=== PATIENT | male | born 2000 | race Two or more races ===

== ENCOUNTER 2024-03-17 05:39 | Emergency (ER) | payer MEDICAID, SELFPAY ==
[2024-03-17 05:41] VITALS: BP 129/76; PULSE 100; PULSE 89; RESP 13; RESP 18; TEMP 36.5; O2SAT 100; O2SAT 98; BMI 20.3
--- NOTE | 2024-03-17 05:47 | PD.EDRME ---
Rapid Medical Screening Exam RME Arrival date/time: 03/17/24 05:39 Chief Complaint: Seizure Time Seen by Provider: 03/17/24 05:47 RME Narrative: 23-year-old male with a history of seizures on Keppra who reports of breakthrough seizures. No other complaints. A problem focused workup was initiated and patient will be seen by the additional provider.
[2024-03-17] MEDS: ONDANSETRON INJ 2 MG/ML INJ 2 ML 4 MG IV (06:03)
[2024-03-17 06:31] LABS: Basophils % (Auto) 0 % (0-2.5); Eosinophils # (Auto) 0.1 Thou/mm3 (0.0-0.5); Eosinophils % (Auto) 2 % (0-10); Hematocrit 39.9 % (41.0-53.0); Hemoglobin 13.9 g/dL (13.5-16.0); Immature Granulocytes % (Auto) 0 % (0-0); Immature Granulocytes Auto 0.02 Thou/mm3 (0.00-0.00); Lymphocytes # (Auto) 1.4 Thou/mm3 (1.0-4.8); Lymphocytes % (Auto) 20 % (10-50); Mean Corpuscular HGB Conc 34.8 g/dl (31.0-37.0); Mean Corpuscular Hemoglobin 30.8 pg (25.0-35.0); Mean Corpuscular Volume 88 fL (80-100); Monocytes # (Auto) 0.8 Thou/mm3 (0.0-0.8); Monocytes % (Auto) 12 % (0-12); Neutrophils # (Auto) 4.5 Thou/mm3 (1.8-7.7); Neutrophils % (Auto) 66 % (37-80); Nucleated Red Blood Cell % 0 /100 WBC (0); Platelet Count 191 Thou/mm3 (140-440); RDW Standard Deviation 42.5 fL (35.1-43.9); Red Blood Count 4.52 Miln/mm3 (4.50-5.90); White Blood Count 6.8 Thou/mm3 (3.8-10.6)
[2024-03-17 06:40] LABS: Alanine Aminotransferase 11 U/L (10-49); Albumin, Serum 4.7 gm/dL (3.5-5.0); Albumin/Globulin Ratio 2.1 (1.2-2.2); Alkaline Phosphatase 79 U/L (46-116); Anion Gap 9 (7-16); Aspartate Amino Transferase 19 U/L (0-34); BUN/Creatinine Ratio 11 Ratio (12-20); Bilirubin,Total 0.3 mg/dL (0.3-1.2); Blood Urea Nitrogen 11 mg/dL (9-23); Calcium 9.7 mg/dL (8.3-10.6); Calcium (Corrected) 9.7 mg/dL (8.5-10.1); Carbon Dioxide 24.8 mMol/L (20.0-31.0); Chloride 106 mMol/L (98-107); Estimated Creatinine Clearance 95.8 mL/min (>60); Globulin 2.2 gm/dL (2.3-3.5); Glucose 70 mg/dL (74-106); Osmolality,Calculated 276 (275-295); Potassium 3.9 mMol/L (3.4-5.1); Sodium 140 mMol/L (136-145); Total Protein 6.9 gm/dL (5.7-8.2); eGFR > 60 See Note
--- NOTE | 2024-03-17 06:51 | XR_ITS ---
Examination: CT brain head without contrast. 2-D sagittal coronal reconstructions Date and time of exam:March 17, 2024 at 0711 hrs. Comparison December 11, 2023 Indications: Onset seizure one hour ago with loss of consciousness CTDI: vol (mGy):50.9 DLP: (mGycm):984 Technique: Multiple CT axial sections of the brain have been obtained, 5 mm slice thickness. Contrast has not been administered. 2-D sagittal, coronal reconstructions have been obtained Low dose protocols were performed. One or more of the following dose reduction techniques were used; automated exposure control, adjustment of the mA and/or KV according to patient size, use of iterative reconstruction technique. Findings: Right craniotomy defect with shunt tube tip within the right temporal horn There remains dilatation of the right lateral ventricle especially posteriorly with stable shift of the frontal horns to the left approximately 7 mm Stable encephalomalacia posterior right parietal lobe No interval hemorrhage either intra or extra-axial Fourth ventricle midline Cerebellar tonsils normal in position No cranial vault fracture Impression: No interval hemorrhage Consider elective brain MRI follow-up, seizure protocol
--- NOTE | 2024-03-17 07:00 | PC.NURSE ---
REPORT RECEIVED AT THIS TIME; PER REPORT, PT COMING IN FOR SEIZURE EPISODE TONIC-CLONIC LASTING 2 MINUTES AT HOME. PT WAS RESTING WITH WHEN HE HAD A SEIZURE EPISODE. PT DID ADMINISTER A DIAZEPAM NASAL SPRAY TO SELF BEFORE COMING TO THE ED. PT HAS HX OF SEIZURE, CYSTS ON HIS BRAIN, AND BRAIN SHUNT. PT CONNECTED TO MONITORS AT THIS TIME; PT SLEEPING AND RESTING COMFORTABLY. NO ACUTE DISTRESS NOTED. SEIZURE PRECAUTIONS IN PLACE.
[2024-03-17 07:01] VITALS: BP 110/59; PULSE 78; RESP 15; TEMP 36.4; O2SAT 99
[2024-03-17] MEDS: ACETAMINOPHEN 325 MG TABLET 650 MG PO (07:24)
[2024-03-17] MEDS: LORazepam 0.5 MG TABLET 1 MG PO (07:45)
--- NOTE | 2024-03-17 07:47 | PC.NURSE ---
Pt drank an orange juice while taking ativan, currently denies nausea. No complaints.
--- NOTE | 2024-03-17 09:13 | EDNOTE_ITS ---
ED Seizures RME/HPI General Chief Complaint: Seizure Stated Complaint: SEIZURE Time Seen by Provider: 03/17/24 05:47 Arrival date/time: 03/17/24 05:39 RME / HPI RME / HPI Narrative: 23-year-old male with a history of seizures on Keppra who reports of breakthrough seizures. No other complaints. A problem focused workup was initiated and patient will be seen by the additional provider. DR. REED MAIN ED EVALUATION: 23 year old male with past medical history significant for brain cyst operated at 10 years old and seizures that occur about once a month, marijuana use presents to the Emergency Department BIBA accompanied by mother with complaint of seizures, last one lasted about 2 minutes. Symptoms are moderate. No trauma/ fall/ injuries or other symptoms at this time. Related Data Home Medications ?Medication ?Instructions ?Recorded ?Confirmed buspirone 7.5 mg tablet 10 mg PO BID 03/17/24 03/17/24 clobazam 10 mg tablet 10 mg PO BID 03/17/24 03/17/24 diazepam 20 mg/2 spray (10 mg/0.1 20 mg intranasal PRN PRN Seizure 03/17/24 03/17/24 mL x 2) nasal spray (Valtoco) Activity eslicarbazepine 800 mg tablet 800 mg PO 1XD 03/17/24 03/17/24 (Aptiom) Allergies Allergy/AdvReac Type Severity Reaction Status Date / Time No Known Allergies Allergy Verified 12/11/23 06:25 Review of Systems Review of Systems Systems Reviewed: All systems reviewed, normal except as documented Narrative Review of Systems: GEN: No fever, no chills, no weight loss EYES: No discharge, no visual changes, no pain HEENT: No ear pain, no congestion, no sore throat PULM: No shortness of breath, no cough, no congestion CV: No chest pain, no dyspnea on exertion, no palpitations GI: No nausea, no vomiting, no diarrhea, no pain, no constipation : No frequency, no urgency and no dysuria MUSC/SKEL: No joint pain, no back pain SKIN: No rash PSYCH: No hallucinations, no depression HEME/LYMPH: No easy bleeding or bruising tendencies NEURO: No weakness, no headache, + seizures Past Medical History Past Medical History NEUROLOGIC: Positive Neurological Disorders (brain cysts) and Seizures CARDIAC: Negative Congestive Heart Failure RESPIRATORY: Negative Chronic Obstructive Pulmonary Disease (COPD) GENITOURINARY: Negative Renal Disease ENDOCRINE: Negative Diabetes Mellitus Type 1 or Diabetes Mellitus Type 2 OTHER HISTORY: Negative Anesthesia Reactions Surgical History SURGICAL: Positive Neurologic Surgery and Brain Shunt Social History SMOKING STATUS: Unknown if ever smoked ED Exam Narrative Physical exam: GENERAL APPEARANCE: Well hydrated, well nourished, in no acute distress. VITALS: All vitals were reviewed and the pulse ox is 99% on room air which is normal according to my interpretation. HEENT: Normocephalic, atramatic, EOMI, EACs are patent. There is no bulge or retraction. Throat without erythema or exudate. Moist oromucosa. No jaundice NECK: Supple, no JVD or bruits. CARDIOVASCULAR: Heart regular without S3-S4 or murmur. No rubs or gallops. LUNGS/CHEST: Clear to auscultation bilaterally. No rales, rhonchi, or wheezing. Normal inspection. ABDOMEN: Soft, nontender, with normal bowel sounds. No pulsatile masses. No rebound, rigidity, or guarding. No incarcerated hernia. Normal inspection and palpation. EXTREMITIES: No edema, clubbing, or cyanosis. Intact CSM. Normal inspection and palpation. SKIN: Warm and dry without rashes. Normal inspection. MUSCULOSKELETAL: No gross deformity, full ROM all extremities. Normal inspection. NEURO: Alert and oriented x3. Cranial nerves II through XII grossly intact. There are no other motor or sensory deficits noted. PSYCHIATRIC: Normal mood and affect. No psychosis. Course Quality Measures none Orders Category Date Time Status Saline [Insert IV] NOW Care 03/17/24 06:[address] head/brain wo con Stat Exams 03/17/24 06:51 Completed CBC Stat Lab 03/17/24 06:04 Completed CMP [Comprehensive Metabolic Panel] Stat Lab 03/17/24 06:04 Completed Acetaminophen Tab [Tylenol Tab] Med 03/17/24 07:22 Discontinued 650 mg PO X1 ONE LORazepam [Ativan] Med 03/17/24 07:31 Discontinued 1 mg PO X1 ONE Ondansetron Inj [Zofran Inj] Med 03/17/24 05:57 Discontinued 4 mg .ROUTE .STK-MED ONE Ondansetron Inj [Zofran Inj] Med 03/17/24 06:00 Discontinued 4 mg IV X1 ONE levETIRAcetam INJ [Keppra Inj] Med 03/17/24 06:30 Discontinued 1,000 mg IVP X1 ONE Vital Signs Vital signs: Vital Signs Temperature 97.7 F 03/17/24 05:41 Pulse Rate 89 03/17/24 05:41 Respiratory Rate 13 03/17/24 05:41 Blood Pressure 129/76 03/17/24 05:41 Pulse Oximetry (%) 100 03/17/24 05:41 Seizure MDM Narrative MDM Narrative:: I, Christel Fernández, am scribing for and in the presence of Dr. Reed. CBC is negative. CMP remarkable for sugar of 70. At that time the fingerstick was 96. And the patient tolerated p.o. fluid well. Therefore giving him some orange juice. The patient also received a Ativan [address] brain was done and reviewed by me and interpreted by me as follow: No bleed. No mass. No shifting. No swelling. There is a cyst right next to the posterior horn of the right lateral ventricle. There is a [employer] shunt inside it. In comparison to the old CT brain it is identical. No change at all. No bleed. No mass. And normal bones except for the craniotomy in the right parietal skull. In the emergency department, I spoke to and discussed with Dr. Sosa, neurologist on-call as well as his own neurologist. She recommend to increase the Onfi from 10 mg p.o. twice daily to 15 mg p.o. twice daily. She said that she will write prescription for that. Patient and mom were informed of that. He continued to do well here in the emergency department. No further seizure activity noted. He is alert awake oriented x 4 GCS of 15 GCS of 15 and no neurological deficit. And I was told that the seizure at home was happening in bed. So there was no trauma or injury. Patient data External records reviewed:: [facility] previous records (Reviewed last ED visit dated 12/11/23, discharged with the following: Nausea & vomiting) Clinical information provided by:: patient and parent (mother) Social determinants that could affect healthcare access:: substance use (marijuana use) Patient has the following chronic illnesses:: Brain cyst operated at 10 years old and seizures that occur about once a month. How is presenting disease/condition affected by chronic disease/condition?: caused by Evaluation data The following diagnostics were reviewed and interpreted by me:: lab results and radiology exam(s) Lab and/or radiology exams considered but not ordered:: none Interpretation Summary: Procedure(s): CT head/brain wo con Accession Number(s): [id number] cc: Jason Johnson MD; Gregor Orantes MD; Cruzito Reed MD~ Examination: CT brain head without contrast. 2-D sagittal coronal reconstructions Date and time of exam:March 17, 2024 at 0711 hrs. Comparison December 11, 2023 Indications: Onset seizure one hour ago with loss of consciousness CTDI: vol (mGy):50.9 DLP: (mGycm):984 Technique: Multiple CT axial sections of the brain have been obtained, 5 mm slice thickness. Contrast has not been administered. 2-D sagittal, coronal reconstructions have been obtained Low dose protocols were performed. One or more of the following dose reduction techniques were used; automated exposure control, adjustment of the mA and/or KV according to patient size, use of iterative reconstruction technique. Findings: Right craniotomy defect with shunt tube tip within the right temporal horn There remains dilatation of the right lateral ventricle especially posteriorly with stable shift of the frontal horns to the left approximately 7 mm Stable encephalomalacia posterior right parietal lobe No interval hemorrhage either intra or extra-axial Fourth ventricle midline Cerebellar tonsils normal in position No cranial vault fracture Impression: No interval hemorrhage Consider elective brain MRI follow-up, seizure protocol Dictated By: Gregor Orantes MD Medications / Prescriptions Medications or Prescriptions considered but not ordered:: none Medication administrations:: Medication Administration History Discontinued Medications Acetaminophen (Acetaminophen 325 Mg Tablet) 650 mg PO X1 ONE Stop: 03/17/24 07:23 Last Admin: 03/17/24 07:24 Dose: 650 mg Documented By: GM Levetiracetam (Levetiracetam Inj 100 Mg/Ml Vial 5ml) 1,000 mg IVP X1 ONE Stop: 03/17/24 06:31 Last Admin: 03/17/24 07:25 Dose: Not Given Documented By: GM Non-Admin Reason: Discontinued Lorazepam (Lorazepam 0.5 Mg Tablet) 1 mg PO X1 ONE Stop: 03/17/24 07:32 Last Admin: 03/17/24 07:45 Dose: 1 mg Documented By: AM Ondansetron HCl (Ondansetron Inj 2 Mg/Ml Inj 2 Ml) 4 mg IV X1 ONE; Protocol Stop: 03/17/24 06:01 Last Admin: 03/17/24 06:03 Dose: 4 mg Documented By: NICHOLAS Ondansetron HCl (Ondansetron Inj 2 Mg/Ml Inj 2 Ml) Confirm Administered Dose 4 mg .ROUTE .STK-MED ONE Stop: 03/17/24 05:58 Last Admin: 03/17/24 06:05 Dose: Not Given Documented By: NICHOLAS Non-Admin Reason: Duplicate Medication on eMAR see above Consultations Consultation(s) initiated? (list below): Yes Diagnosis Seizure Differential Diagnosis: intractable seizure disorder, generalized seizure and epileptic seizure Most likely diagnosis given after review of the tests above:: Recurrent epileptic seizure Admission Indicated Admission indicated?: not indicated Admission Request Was there a request for admission?: No Disposition Plan Disposition Plan: Discharge Discharge Attestation Discharge Attestation: The patient and all family members were given an opportunity to ask questions and understood the discharge instructions. Discharge instructions specifically effects, indications for sooner follow up or return to the emergency department, and the expected course of current diagnosis. Patient condition: Stable Discharge Plan Plan Patient Disposition: HOME (Self Care) Disposition Comment: Stable for [place] home Prescriptions/Referrals Prescriptions/Med Rec: No Action buspirone 7.5 mg tablet 10 mg PO BID Aptiom 800 mg tablet 800 mg PO 1XD Patient Comments: TAKE 1 TABLET BY MOUTH EVERY DAY Valtoco 20 mg/2 spray (10mg/0.1mL x2) spray,non-aerosol 20 mg INTRANASAL PRN PRN (Reason: Seizure Activity) clobazam 10 mg tablet 10 mg PO BID Patient Comments: TAKE 1 TABLET BY MOUTH TWICE A DAY Referrals: Jason Johnson MD [Primary Care Provider] - In 1 week Problem List Clinical Impression: Recurrent seizures Patient/Caregiver Discharge Instructions Education Materials: ED Seizure, Recurrent (Adult) Additional Instructions: I spoke to your neurologist. She recommend that you increase the clobazam Onfi from 10 mg to 15 mg by mouth twice a day. She will write prescription for that. Please follow-up with her. Return to nearest ER for any problem. Warning no driving, no heavy equipments, no beba Print Language: Korean Stand Alone Forms: Rosa Award Info., Patient Portal Info Letter
[2024-03-17 09:30] VITALS: BP 112/56; PULSE 78; RESP 19; O2SAT 96
[2024-03-17 10:23] VITALS: BP 119/69; PULSE 99; RESP 18; TEMP 36.9; O2SAT 96
== END 2024-03-17 10:32 | disposition home or self-care (01) ==
PROVIDERS: Emergency Medicine; Emergency Provider Emergency Medicine; PCP Family Medicine
DX: R56.9 Unspecified convulsions (principal)
CPT/HCPCS: 36415; 70450; 80053; 85025; 96374; 99284; J2405; A9270

== ENCOUNTER 2024-06-29 19:04 | Emergency (ER) | payer MEDICAID, SELFPAY ==
[2024-06-29 19:06] VITALS: BMI 20.3
[2024-06-29 19:29] VITALS: BP 132/76; PULSE 71; RESP 18; TEMP 37.2; O2SAT 99; BMI 18.1
--- NOTE | 2024-06-29 19:47 | EDNOTE_ITS ---
<Statement entered by Kaycee Rosales MD - 06/30/24 04:25> As co-signing physician, I was present and available for consult prn. I concur with the plan and care as documented by the midlevel provider. ED Dizzyness RME/HPI General Chief Complaint: Dizziness Stated Complaint: DIZZINESS, SHAKY, NUMBNESS TO EXTREMITIES FOR DAYS Time Seen by Provider: 06/29/24 19:37 Arrival date/time: 06/29/24 19:04 RME / HPI RME / HPI Narrative: 23-year-old male patient with significant history of complex seizure, currently managed by [facility] neurologist, within further evaluation and possible surgery according to the patient, came in for evaluation regarding on and off dizziness shakiness and numbness to both lower extremities for days. Usually worst when the patient get up from bed to ambulation in the morning. Patient told me that her Leonid MD just increase his Aptiom to 1 g every day. Patient is denying any headache denies any slurring speech denies any other complaints. Family is concerned that his sodium is low. Related Data Home Medications ?Medication ?Instructions ?Recorded ?Confirmed buspirone 7.5 mg tablet 10 mg PO BID 03/17/24 clobazam 10 mg tablet 10 mg PO BID 03/17/24 diazepam 20 mg/2 spray (10 mg/0.1 20 mg intranasal PRN PRN Seizure 03/17/24 03/17/24 mL x 2) nasal spray (Valtoco) Activity eslicarbazepine 800 mg tablet 800 mg PO 1XD 03/17/24 0 03/17/24 (Aptiom) Previous Rx's ?Medication ?Instructions ?Recorded meclizine 25 mg tablet 25 mg PO BID PRN dizziness # 20 tabs 06/29/24 Allergies Allergy/AdvReac Type Severity Reaction Status Date / Time No Known Allergies Allergy Verified 06/29/24 19:06 Review of Systems Review of Systems Narrative Review of Systems: Review of system reviewed and within normal limits except mentioned in HPI ED Exam Narrative Physical exam: VITAL SIGNS: Reviewed. GENERAL APPEARANCE: Alert and interactive, follows commands, no acute distress, HEAD AND FACE: Non-traumatic. ENT: PERRL, pink conjunctivitis, eyelid no trauma, Mucous membrane moist. NECK: Supple, nontender, no nuchal rigidity. CHEST: No tenderness, no crepitus, no paradoxical movement, no retractions. LUNGS: Clear, well ventilated, symmetric, no rales, no wheezing, no ronchi, no stridor, good breath sounds bilaterally. HEART: Regular rate, regular rhythm, no murmur, no gallops. ABDOMEN: Soft, positive bowel sounds, nondistended, no guarding, nontender, no rebound, no masses, RECTAL: Deferred. GENITAL: Deferred. NEUROLOGICAL: Gross motor function intact sensory function intact, Appropriate for age. MUSCULOSKELETAL: low back nontender, full range of motion. EXTREMITIES: Nontender, full range of motion. SKIN: Color pink, dry, no rash, no lacerations, no abrasions, no contusions. LYMPHATICS: Deferred. Course Quality Measures none Orders Category Date Time Status CBC [CBC] Stat Lab 06/29/24 19:53 Completed CMP [Comprehensive Metabolic Panel] Stat Lab 06/29/24 19:53 Completed UA, C/S IF [Urinalysis, C/S if Indicated] Stat Lab 06/29/24 20:07 Completed Vital Signs Vital signs: Vital Signs Temperature 98.9 F 06/29/24 19:29 Pulse Rate 71 06/29/24 19:29 Respiratory Rate 18 06/29/24 19:29 Blood Pressure 132/76 H 06/29/24 19:29 Pulse Oximetry (%) 99 06/29/24 19:29 Oxygen Delivery Method Room Air 06/29/24 19:29 Dizziness MDM Narrative MDM Narrative:: 23-year-old male patient with significant history of complex seizure, currently managed by [facility] neurologist, within further evaluation and possible surgery according to the patient, came in for evaluation regarding on and off dizziness shakiness and numbness to both lower extremities for days. Usually worst when the patient get up from bed to ambulation in the morning. Patient told me that her [facility] MD just increase his Aptiom to 1 g every day. Patient is denying any headache denies any slurring speech denies any other complaints. Family is concerned that his sodium is low. Patient's workup today all came back normal. Sodium is also normal. Urinalysis no UTI Patient data External records reviewed:: None Clinical information provided by:: patient Social determinants that could affect healthcare access:: none Patient has the following chronic illnesses:: History of seizure How is presenting disease/condition affected by chronic disease/condition?: exacerbated by Evaluation data The following diagnostics were reviewed and interpreted by me:: lab results Lab and/or radiology exams considered but not ordered:: None Interpretation Summary: See results MDM Medications / Prescriptions Medications or Prescriptions considered but not ordered:: None Medication administrations:: None Consultations Consultation(s) initiated? (list below): No Diagnosis Dizziness Differential Diagnosis: benign paroxysmal positional vertigo and other (Dizziness) Most likely diagnosis given after review of the tests above:: Dizziness, history of seizure Admission Indicated Admission indicated?: not indicated Admission Request Was there a request for admission?: No Disposition Plan Disposition Plan: Discharge Discharge Attestation Discharge Attestation: The patient and all family members were given an opportunity to ask questions and understood the discharge instructions. Discharge instructions specifically effects, indications for sooner follow up or return to the emergency department, and the expected course of current diagnosis. Patient condition: Stable Discharge Plan Plan Patient Disposition: HOME (Self Care) Discharge Disposition comment: Stable Prescriptions/Referrals Prescriptions/Med Rec: New meclizine 25 mg tablet 25 mg PO BID PRN (Reason: dizziness) Qty: 20 0RF No Action buspirone 7.5 mg tablet 10 mg PO BID Aptiom 800 mg tablet 800 mg PO 1XD Patient Comments: TAKE 1 TABLET BY MOUTH EVERY DAY Valtoco 20 mg/2 spray (10mg/0.1mL x2) spray,non-aerosol 20 mg INTRANASAL PRN PRN (Reason: Seizure Activity) clobazam 10 mg tablet 10 mg PO BID Patient Comments: TAKE 1 TABLET BY MOUTH TWICE A DAY Referrals: Jason Johnson MD [Primary Care Provider] - In 1 week Problem List Clinical Impression: Dizziness Patient/Caregiver Discharge Instructions Discharge Activity: activity as tolerated Education Materials: ED Dizziness, Uncertain Cause Additional Instructions: Thank you for the opportunity for serving you today. You are stable for discharged . You are advised to: Follow-up with your PCP in 1 to 2 days Return to ED for worsening of symptoms Increase oral fluids Take medication as prescribed Call your neurologist from [facility] regarding your seizure medications Print Language: Norwegian Stand Alone Forms: Rosa Award Info., Patient Portal Info Letter MART/HARVEY Supervising Physician MART/HARVEY Supervising Physician: MD Connie
[2024-06-29 19:59] LABS: Basophils % (Auto) 0 % (0-2.5); Eosinophils % (Auto) 0 % (0-10); Hematocrit 40.3 % (41.0-53.0); Hemoglobin 14.2 g/dL (13.5-16.0); Immature Granulocytes % (Auto) 0 % (0-0); Immature Granulocytes Auto 0.03 Thou/mm3 (0.00-0.00); Lymphocytes # (Auto) 1.8 Thou/mm3 (1.0-4.8); Lymphocytes % (Auto) 19 % (10-50); Mean Corpuscular HGB Conc 35.2 g/dl (31.0-37.0); Mean Corpuscular Hemoglobin 30.9 pg (25.0-35.0); Mean Corpuscular Volume 88 fL (80-100); Monocytes # (Auto) 0.6 Thou/mm3 (0.0-0.8); Monocytes % (Auto) 7 % (0-12); Neutrophils # (Auto) 6.8 Thou/mm3 (1.8-7.7); Neutrophils % (Auto) 74 % (37-80); Nucleated Red Blood Cell % 0 /100 WBC (0); Platelet Count 286 Thou/mm3 (140-440); RDW Standard Deviation 40.4 fL (35.1-43.9); Red Blood Count 4.59 Miln/mm3 (4.50-5.90); White Blood Count 9.2 Thou/mm3 (3.8-10.6)
[2024-06-29 20:15] LABS: Collection Type, Urine Clean Catch; Squamous Epithelial Cell,Urine 0 /hpf (0-5)
[2024-06-29 20:18] LABS: Bilirubin,Urine Negative (Negative); Blood,Urine Negative (Negative); Clarity,Urine Clear (Clear/Hazy); Color,Urine Yellow (Lt Yel-Yel); Culture Indicated,Urine Not Indicated; Glucose, Urine Negative (Negative); Ketones,Urine 1+ (Negative); Leukocyte Esterase,Urine Negative (Negative); Nitrite,Urine Negative (Negative); PH,Urine 6.5 (5.0-7.0); Protein,Urine Trace (Neg - Trace); RBC,Urine 3 /hpf (0-3); Specific Gravity,Urine 1.033 (1.001-1.035); Urobilinogen,Urine Negative mg/dL (0.0-1.0); WBC,Urine 1 /hpf (0-5)
[2024-06-29 20:33] LABS: Alanine Aminotransferase 10 U/L (10-49); Albumin, Serum 4.9 gm/dL (3.5-5.0); Albumin/Globulin Ratio 2.1 (1.2-2.2); Alkaline Phosphatase 75 U/L (46-116); Anion Gap 9 (7-16); Aspartate Amino Transferase 24 U/L (0-34); BUN/Creatinine Ratio 13 Ratio (12-20); Bilirubin,Total 0.5 mg/dL (0.3-1.2); Blood Urea Nitrogen 13 mg/dL (9-23); Calcium 9.5 mg/dL (8.3-10.6); Calcium (Corrected) 9.5 mg/dL (8.5-10.1); Carbon Dioxide 28.4 mMol/L (20.0-31.0); Chloride 106 mMol/L (98-107); Estimated Creatinine Clearance 85.5 mL/min (>60); Globulin 2.3 gm/dL (2.3-3.5); Glucose 88 mg/dL (74-106); Osmolality,Calculated 284 (275-295); Potassium 4.4 mMol/L (3.4-5.1); Sodium 143 mMol/L (136-145); Total Protein 7.2 gm/dL (5.7-8.2); eGFR > 60 See Note
[2024-06-29 21:33] VITALS: BP 122/72; PULSE 78
== END 2024-06-29 21:34 | disposition home or self-care (01) ==
PROVIDERS: Nurse Practitioner Family; Emergency Provider Emergency Medicine; PCP Family Medicine
DX: R42 Dizziness and giddiness (principal)
CPT/HCPCS: 36415; 80053; 81001; 85025; 99283

== ENCOUNTER 2024-08-26 06:04 | Emergency (ER) | payer OTHER, MEDICAID, SELFPAY ==
[2024-08-26 06:05] VITALS: BMI 17.8
--- NOTE | 2024-08-26 06:13 | EKG_ITS ---
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
[2024-08-26 06:18] VITALS: BP 113/69; PULSE 71; RESP 16; TEMP 36.7; O2SAT 98
--- NOTE | 2024-08-26 06:45 | PD.EDSOB ---
ED SOB =RME/HPI General Chief Complaint: Shortness of Breath/Dyspnea Stated Complaint: TROUBLE BREATHING Time Seen by Provider: 08/26/24 06:12 Arrival date/time: 08/26/24 06:04 RME / HPI RME / HPI Narrative: 23-year-old patient presents emergency department with complaint of shortness of breath that began this morning when he woke up and was preparing to go to work he states he started hearing some wheezing and he denies a previous history of asthma he does attest to history of tobacco use he denies chest pain he denies any alleviating or aggravating factors. Related Data Home Medications ?Medication ?Instructions ?Recorded ?Confirmed buspirone 7.5 mg tablet 10 mg PO BID 03/17/24 03/17/24 clobazam 10 mg tablet 10 mg PO BID 03/17/24 03/17/24 diazepam 20 mg/2 spray (10 mg/0.1 20 mg intranasal PRN PRN Seizure 03/17/24 03/17/24 mL x 2) nasal spray (Valtoco) Activity eslicarbazepine 800 mg tablet 800 mg PO 1XD 03/17/24 03/17/24 (Aptiom) Previous Rx's ?Medication ?Instructions ?Recorded meclizine 25 mg tablet 25 mg PO BID PRN dizziness #20 tabs 06/29/24 albuterol sulfate 90 mcg/actuation 2 inh inhalation Q6H PRN shortness 08/26/24 breath activated powder inhaler of breath or wheezing #1 ea (ProAir RespiClick) prednisone 50 mg tablet 50 mg PO QDAY 5 days #5 tabs 08/26/24 Allergies Allergy/AdvReac Type Severity Reaction Status Date / Time No Known Allergies Allergy Verified 08/26/24 06:05 Review of Systems Review of Systems Systems Reviewed: All systems reviewed, normal except as documented Constitutional Constitutional: Reports system reviewed and no additional complaints, except as documented ENT Ears, Nose, Mouth, and Throat: Reports system reviewed and no additional complaints, except as documented Cardiovascular Cardiovascular: Reports system reviewed and no additional complaints, except as documented Respiratory Respiratory: Reports system reviewed and no additional complaints, except as documented Musculoskeletal Musculoskeletal: Reports system reviewed and no additional complaints, except as documented Neurologic Neurologic: Reports system reviewed and no additional complaints, except as documented Psychiatric Psychiatric: Reports system reviewed and no additional complaints, except as documented ED Exam General General appearance: Present alert and in no apparent distress ENT ENT exam: Present normal exam, normal oropharynx and mucous membranes moist Chest Chest inspection: Present normal inspection and symmetric chest wall rise; Absent tenderness or rash Respiratory Respiratory exam: Present wheezes; Absent stridor, accessory muscle use or prolonged expiratory phase Cardiovascular Cardiovascular exam: Present regular rate and normal rhythm Course Quality Measures none Orders Category Date Time Status EKG (ED ONLY) *Do not use* NOW Care 08/26/24 06:13 Completed EKG (ED Only) Stat Exams 08/26/24 06:13 Draft XR chest 2V Stat Exams 08/26/24 06:54 Completed Albuterol/Ipratr Rt Eileen [Duoneb Rt Eileen] Med 08/26/24 06:31 Discontinued 3 ml INH X1 ONE Albuterol/Ipratr Rt Eileen [Duoneb Rt Eileen] Med 08/26/24 07:11 Discontinued 3 ml INH X1 ONE Dexamethasone Inj [Decadron Inj] Med 08/26/24 07:30 Discontinued 10 mg .ROUTE .STK-MED ONE dexAMETHasone TAB [Decadron Tab] Med 08/26/24 06:57 Discontinued 10 mg PO X1 ONE Vital Signs Vital signs: Vital Signs Temperature 98.0 F 08/26/24 06:18 Pulse Rate 71 08/26/24 06:18 Respiratory Rate 16 08/26/24 06:18 Blood Pressure 113/69 08/26/24 06:18 Pulse Oximetry (%) 98 08/26/24 06:18 Oxygen Delivery Method Room Air 08/26/24 06:18 Shortness of Breath / Dyspnea MDM Narrative MDM Narrative:: 23-year-old patient presents emergency department with shortness of breath that started this morning. He attests to tobacco use. He denies a history of asthma. Patient has generalized wheezing. 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 Chest x-ray also ordered to rule out possibility of spontaneous pneumothorax given patient's body habitus. Patient data External records reviewed:: None Clinical information provided by:: patient Social determinants that could affect healthcare access:: none Patient has the following chronic illnesses:: na How is presenting disease/condition affected by chronic disease/condition?: uneffected by Evaluation data The following diagnostics were reviewed and interpreted by me:: radiology exam(s) Lab and/or radiology exams considered but not ordered:: Chest x-ray considered and ordered Interpretation Summary: unremarkable chest x-ray Medications / Prescriptions Medications or Prescriptions considered but not ordered:: meds considered and ordered Medication administrations:: Medication Administration History Discontinued Medications Albuterol/Ipratropium (Albuterol/Ipratropium (Duoneb) Rt Eileen 3 Ml Nebu) 3 ml INH X1 ONE Stop: 08/26/24 06:32 Last Admin: 08/26/24 07:01 Dose: 3 ml Documented By: AA Comments: scanner not scanning Albuterol/Ipratropium (Albuterol/Ipratropium (Duoneb) Rt Eileen 3 Ml Nebu) 3 ml INH X1 ONE Stop: 08/26/24 07:12 Last Admin: 08/26/24 07:17 Dose: 3 ml Documented By: AA Dexamethasone (Dexamethasone 1 Mg Tablet) 10 mg PO X1 ONE; Protocol Stop: 08/26/24 06:58 Last Admin: 08/26/24 07:32 Dose: 10 mg Documented By: ARF Comments: po Dexamethasone Sodium Phosphate (Dexamethasone Sod Phos Inj 10 Mg/Ml Vial) Confirm Administered Dose 10 mg .ROUTE .STK-MED ONE Stop: 08/26/24 07:31 Last Admin: 08/26/24 07:43 Dose: Not Given Documented By: ARF Non-Admin Reason: Override Medication as directed Consultations Consultation(s) initiated? (list below): No Diagnosis Shortness of Breath Differential Diagnosis: acute exacerbation of chronic obstructive airways disease, congestive heart failure, community acquired pneumonia, asthma with exacerbation, pulmonary embolism and other (Spontaneous pneumothorax, bronchospasm) Most likely diagnosis given after review of the tests above:: Bronchospasm Admission Indicated Admission indicated?: not indicated Explain why admission is indicated or not indicated:: Patient does not display any signs of respiratory distress Admission Request Was there a request for admission?: No Disposition Plan Disposition Plan: Discharge Discharge Attestation Discharge Attestation: The patient and all family members were given an opportunity to ask questions and understood the discharge instructions. Discharge instructions specifically effects, indications for sooner follow up or return to the emergency department, and the expected course of current diagnosis. Patient condition: Stable Discharge Plan Plan Patient Disposition: HOME (Self Care) Prescriptions/Referrals Prescriptions/Med Rec: New prednisone 50 mg tablet 50 mg PO QDAY 5 Days Qty: 5 0RF ProAir RespiClick 90 mcg/actuation aerosol powdr breath activated 2 inh inhalation Q6H PRN (Reason: shortness of breath or wheezing) Qty: 1 0RF No Action buspirone 7.5 mg tablet 10 mg PO BID Aptiom 800 mg tablet 800 mg PO 1XD Patient Comments: TAKE 1 TABLET BY MOUTH EVERY DAY Valtoco 20 mg/2 spray (10mg/0.1mL x2) spray,non-aerosol 20 mg INTRANASAL PRN PRN (Reason: Seizure Activity) clobazam 10 mg tablet 10 mg PO BID Patient Comments: TAKE 1 TABLET BY MOUTH TWICE A DAY meclizine 25 mg tablet 25 mg PO BID PRN (Reason: dizziness) Qty: 20 0RF Referrals: No Primary/Family,Physician [Primary Care Provider] - In 1 week Problem List Clinical Impression: Acute bronchospasm Patient/Caregiver Discharge Instructions Education Materials: ED Bronchospasm (Adult) Print Language: Nicaraguan Stand Alone Forms: Rosa Award Info., Patient Portal Info Letter
--- NOTE | 2024-08-26 06:54 | XR_ITS ---
Examination: PA lateral chest 2 views TECHNIQUE: Upright PA and lateral chest 2 views Date and time: August 26, 2024, 0648 hours INDICATIONS: Shortness of breath beginning 2 days ago. FINDINGS: Normal heart size No lobar pneumonia or pulmonary edema. Right ventriculoperitoneal shunt tube IMPRESSION: No pneumonia or pulmonary edema
[2024-08-26] MEDS: ALBUTEROL/IPRATROPIUM (Duoneb) RT SOL 3 ML NEBU INH ×2 (07:01→07:17)
[2024-08-26 07:04] VITALS: PULSE 61; RESP 19; O2SAT 99
[2024-08-26 07:17] VITALS: PULSE 86; RESP 19; O2SAT 99
[2024-08-26] MEDS: dexAMETHasone 1 MG TABLET 10 MG PO (07:32)
== END 2024-08-26 07:44 | disposition home or self-care (01) ==
PROVIDERS: Emergency Provider Emergency Medicine
DX: J98.01 Acute bronchospasm (principal); I49.8 Other specified cardiac arrhythmias
CPT/HCPCS: 71046; 93005; 94640; 99283; A9270; J8540

== ENCOUNTER 2024-09-05 05:47 | Emergency (ER) | payer OTHER, MEDICAID, SELFPAY ==
[2024-09-05 05:49] VITALS: BMI 17.4
--- NOTE | 2024-09-05 05:53 | EKG_ITS ---
[facility] Test Date: 2024-09-05 Pat Name: JOHN RUIZ Department: Room: - Gender: Male Full Time Babysitter: : 2000 Requested By: ED Temporary Provider Order Number: [id number] Reading MD: ED Temporary Provider Measurements Intervals Stopover Rate: 78 P: 68 NH: 146 QRS: 80 QRSD: 90 T: 58 QT: 346 QTc: 394 Interpretive Statements SINUS RHYTHM Compared to ECG 08/26/2024 06:20:46 Sinus arrhythmia no longer present /store/S0/[id number].pdf
[2024-09-05 06:03] VITALS: BP 107/72; PULSE 72; RESP 20; TEMP 36.8; O2SAT 97
--- NOTE | 2024-09-05 06:21 | XR_ITS ---
Examination: PA lateral chest 2 views TECHNIQUE: Upright PA lateral chest 2 views Date and time: September 05, 2024, 0657 hours Comparison August 26, 2024 INDICATIONS: Onset chest pain beginning 5:00 AM today FINDINGS: Normal heart size. No pneumonia or pulmonary edema Right ventriculoperitoneal shunt tube IMPRESSION: No active disease
[2024-09-05 07:21] LABS: Basophils # (Auto) 0.0 Thou/mm3 (0.0-0.2); Basophils % (Auto) 0 % (0-2.5); Eosinophils # (Auto) 0.1 Thou/mm3 (0.0-0.5); Eosinophils % (Auto) 2 % (0-10); Hematocrit 34.2 % (41.0-53.0); Hemoglobin 12.0 g/dL (13.5-16.0); Immature Granulocytes Auto 0.01 Thou/mm3 (0.00-0.00); Lymphocytes # (Auto) 1.3 Thou/mm3 (1.0-4.8); Lymphocytes % (Auto) 24 % (10-50); Mean Corpuscular HGB Conc 35.1 g/dl (31.0-37.0); Mean Corpuscular Hemoglobin 31.6 pg (25.0-35.0); Mean Corpuscular Volume 90 fL (80-100); Monocytes # (Auto) 0.6 Thou/mm3 (0.0-0.8); Monocytes % (Auto) 10 % (0-12); Neutrophils # (Auto) 3.6 Thou/mm3 (1.8-7.7); Neutrophils % (Auto) 64 % (37-80); Nucleated Red Blood Cell # 0.00 Thou/mm3 (0.00-0.00); Nucleated Red Blood Cell % 0 /100 WBC (0); Platelet Count 241 Thou/mm3 (140-440); RDW Standard Deviation 44.5 fL (35.1-43.9); Red Blood Count 3.80 Miln/mm3 (4.50-5.90); White Blood Count 5.5 Thou/mm3 (3.8-10.6)
[2024-09-05 07:37] LABS: Alanine Aminotransferase 12 U/L (10-49); Albumin, Serum 4.1 gm/dL (3.5-5.0); Albumin/Globulin Ratio 2.1 (1.2-2.2); Alkaline Phosphatase 66 U/L (46-116); Anion Gap 5 (7-16); Aspartate Amino Transferase 19 U/L (0-34); BUN/Creatinine Ratio 12 Ratio (12-20); Bilirubin,Total 0.3 mg/dL (0.3-1.2); Blood Urea Nitrogen 12 mg/dL (9-23); Calcium 9.3 mg/dL (8.3-10.6); Calcium (Corrected) 9.3 mg/dL (8.5-10.1); Carbon Dioxide 31.6 mMol/L (20.0-31.0); Chloride 109 mMol/L (98-107); Creatinine (Component) 1.0 mg/dL (0.6-1.3); Estimated Creatinine Clearance 81.8 mL/min (>60); Globulin 2.0 gm/dL (2.3-3.5); Glucose 79 mg/dL (74-106); Lipase 45 U/L (12-53); Osmolality,Calculated 289 (275-295); Potassium 4.1 mMol/L (3.4-5.1); Sodium 146 mMol/L (136-145); Total Protein 6.1 gm/dL (5.7-8.2); Troponin I < 0.002 ng/mL (0.0-0.045); eGFR > 60 See Note
[2024-09-05 07:55] LABS: D-Dimer < 250 ng/mL (<600)
--- NOTE | 2024-09-05 08:02 | PD.EDCHEST ---
ED Chest Pain RME/HPI General Chief Complaint: Chest Pain Stated Complaint: CHEST PAIN,SOB Time Seen by Provider: 09/05/24 06:22 Arrival date/time: 09/05/24 05:47 23-year-old male presents to the emergency department today for complaints of generalized chest pain intermittently for the last couple of weeks patient reports the pain is worse with movement and worse with change in position Limitations: no limitations Related Data Home Medications ?Medication ?Instructions ?Recorded ?Confirmed buspirone 7.5 mg tablet 10 mg PO BID 03/17/24 03/17/24 clobazam 10 mg tablet 10 mg PO BID 03/17/24 03/17/24 diazepam 20 mg/2 spray (10 mg/0.1 20 mg intranasal PRN PRN Seizure 03/17/24 03/17/24 mL x 2) nasal spray (Valtoco) Activity eslicarbazepine 800 mg tablet 800 mg PO 1XD 03/17/24 03/17/24 (Aptiom) Previous Rx's ?Medication ?Instructions ?Recorded meclizine 25 mg tablet 25 mg PO BID PRN dizziness #20 tabs 06/29/24 albuterol sulfate 90 mcg/actuation 2 inh inhalation Q6H PRN shortness 08/26/24 breath activated powder inhaler of breath or wheezing #1 ea (ProAir RespiClick) cyclobenzaprine 10 mg tablet 10 mg PO TID PRN muscle spasm 10 09/05/24 days #30 tab-caps ibuprofen 600 mg tablet 600 mg PO Q6H #30 tabs 09/05/24 Allergies Allergy/AdvReac Type Severity Reaction Status Date / Time No Known Allergies Allergy Verified 09/05/24 05:48 Review of Systems Review of Systems Systems Reviewed: All systems reviewed, normal except as documented Constitutional Constitutional: Reports system reviewed and no additional complaints, except as documented, Denies fever(s) and Denies headache(s) Eyes Eyes: Reports system reviewed and no additional complaints, except as documented and Denies blurry vision ENT Ears, Nose, Mouth, and Throat: Reports system reviewed and no additional complaints, except as documented, Denies headache(s), Denies nasal congestion and Denies nasal discharge Cardiovascular Cardiovascular: Reports system reviewed and no additional complaints, except as documented, Reports chest pain (Worse with movement) and Denies dyspnea Respiratory Respiratory: Reports system reviewed and no additional complaints, except as documented, Denies chest congestion, Denies cough and Denies dyspnea Gastrointestinal Gastrointestinal: Reports system reviewed and no additional complaints, except as documented and Denies abdominal pain Integumentary/Breasts Skin/Breast: Reports system reviewed and no additional complaints, except as documented and Denies rash Neurologic Neurologic: Reports system reviewed and no additional complaints, except as documented, Reports as per HPI and Denies headache(s) Past Medical History Past Medical History NEUROLOGIC: Positive Neurological Disorders (brain cysts) and Seizures CARDIAC: Negative Congestive Heart Failure RESPIRATORY: Negative Chronic Obstructive Pulmonary Disease (COPD) GENITOURINARY: Negative Renal Disease ENDOCRINE: Negative Diabetes Mellitus Type 1 or Diabetes Mellitus Type 2 OTHER HISTORY: Negative Anesthesia Reactions Surgical History SURGICAL: Positive Neurologic Surgery and Brain Shunt Social History SMOKING STATUS: Current every day smoker ED Exam General Limitations: Present no limitations General appearance: Present alert and in no apparent distress Head Head exam: Present atraumatic, normocephalic and normal inspection Eye Eye exam: Present normal appearance, PERRL and EOMI; Absent conjunctival injection ENT ENT exam: Present normal exam, normal oropharynx and mucous membranes moist Neck Neck exam: Present normal inspection, full ROM and trachea midline Chest Chest inspection: Present normal inspection and symmetric chest wall rise Respiratory Respiratory exam: Present normal lung sounds bilaterally; Absent respiratory distress, wheezes, stridor or accessory muscle use Cardiovascular Cardiovascular exam: Present regular rate, normal rhythm and normal heart sounds; Absent bradycardia, tachycardia, irregular rhythm, systolic murmur, diastolic murmur or JVD Abdominal Exam Abdominal exam: Present soft and normal bowel sounds Extremities Exam Extremities exam: Present normal inspection and full ROM Back Exam Back exam: Present normal inspection and full ROM Neurological Exam Neurological exam: Present alert, oriented X3, CN II-XII intact, normal gait and reflexes normal; Absent motor sensory deficit Psychiatric Psychiatric exam: Present normal affect and normal mood Skin Skin exam: Present warm, dry, intact and normal color; Absent rash Course Quality Measures none Orders Category Date Time Status EKG (ED ONLY) *Do not use* NOW Care 09/05/24 05:53 Completed EKG (ED Only) Stat Exams 09/05/24 05:53 Draft XR chest 2V Stat Exams 09/05/24 06:21 Completed CBC Stat Lab 09/05/24 06:40 Completed Comprehensive Metabolic Panel Stat Lab 09/05/24 06:40 Completed D-Dimer Stat Lab 09/05/24 06:40 Completed Lipase Stat Lab 09/05/24 06:40 Completed Troponin I Stat Lab 09/05/24 06:40 Completed Vital Signs Vital signs: Vital Signs Temperature 98.2 F 09/05/24 06:03 Pulse Rate 72 09/05/24 06:03 Respiratory Rate 20 09/05/24 06:03 Blood Pressure 107/72 09/05/24 06:03 Pulse Oximetry (%) 97 09/05/24 06:03 Oxygen Delivery Method Room Air 09/05/24 06:03 O2 saturation 97% room air with normal limits PROCEDURES: EKG Interpretation #1: Date of EK09/05/24 Time of EK:59 Rate: 78 Interpretation: Interpreted by me EKG Impression: Normal sinus rhythm, No acute ST-T changes, No ectopy, No ischemic changes, Normal QRS, Normal intervals and Normal axis Chest Pain MDM Narrative MDM Narrative:: 23-year-old male presents to the emergency department today for complaints of generalized chest pain intermittently for the last couple of weeks patient reports the pain is worse with movement and worse with change in position On exam patient well-appearing patient does not appear ill or toxic in no acute distress Imaging obtained no acute emergent findings noted EKG obtained no acute emergent findings noted Lab work obtained troponin negative no acute abnormality noted Patient discharged home in no distress to follow-up with primary care doctor in the next 24 to 48 hours and for any worsening symptoms to return to the ER immediately Patient data External records reviewed:: [facility] previous records Clinical information provided by:: patient Social determinants that could affect healthcare access:: none Patient has the following chronic illnesses:: See history How is presenting disease/condition affected by chronic disease/condition?: uneffected by Evaluation data The following diagnostics were reviewed and interpreted by me:: lab results, radiology exam(s) and EKG tracing(s) Lab and/or radiology exams considered but not ordered:: Labs, radiology, EKG obtained Interpretation Summary: Reviewed by me Medications / Prescriptions Medications or Prescriptions considered but not ordered:: Given no meds Medication administrations:: Given no meds Consultations Consultation(s) initiated? (list below): No Diagnosis Chest Pain Differential Diagnosis: fracture of rib, pneumothorax, costochondritis and chest pain Most likely diagnosis given after review of the tests above:: Chest pain Admission Indicated Admission indicated?: not indicated Admission Request Was there a request for admission?: No Disposition Plan Disposition Plan: Discharge Discharge Attestation Discharge Attestation: The patient and all family members were given an opportunity to ask questions and understood the discharge instructions. Discharge instructions specifically effects, indications for sooner follow up or return to the emergency department, and the expected course of current diagnosis. Patient condition: Stable Discharge Plan Plan Patient Disposition: HOME (Self Care) Discharge Disposition comment: Stable Prescriptions/Referrals Prescriptions/Med Rec: New cyclobenzaprine 10 mg tablet 10 mg PO TID PRN (Reason: muscle spasm) 10 Days Qty: 30 0RF ibuprofen 600 mg tablet 600 mg PO Q6H Qty: 30 0RF No Action ProAir RespiClick 90 mcg/actuation aerosol powdr breath activated 2 inh inhalation Q6H PRN (Reason: shortness of breath or wheezing) Qty: 1 0RF buspirone 7.5 mg tablet 10 mg PO BID Aptiom 800 mg tablet 800 mg PO 1XD Patient Comments: TAKE 1 TABLET BY MOUTH EVERY DAY Valtoco 20 mg/2 spray (10mg/0.1mL x2) spray,non-aerosol 20 mg INTRANASAL PRN PRN (Reason: Seizure Activity) clobazam 10 mg tablet 10 mg PO BID Patient Comments: TAKE 1 TABLET BY MOUTH TWICE A DAY meclizine 25 mg tablet 25 mg PO BID PRN (Reason: dizziness) Qty: 20 0RF Referrals: Nils Mitchell MD [Primary Care Provider] - In 1 week Problem List Clinical Impression: Chest pain Patient/Caregiver Discharge Instructions Education Materials: ED Chest Pain, Noncardiac Additional Instructions: Please follow up with your primary care doctor in the next 24-48hrs for any worsening symptoms return here immediately Print Language: Danish Stand Alone Forms: Rosa Award Info., Patient Portal Info Letter PA/EDISCOVERY PROJECT MANAGER Supervising Physician PA/HARVEY Supervising Physician: Dr miranda
== END 2024-09-05 08:14 | disposition home or self-care (01) ==
PROVIDERS: Nurse Practitioner Primary Care; Emergency Provider Emergency Medicine; PCP Family Medicine
DX: R07.9 Chest pain, unspecified (principal)
CPT/HCPCS: 36415; 71046; 80053; 83690; 84484; 85025; 85379; 93005; 99283

== ENCOUNTER 2024-10-17 23:23 | Emergency (ER) | payer OTHER, MEDICAID, SELFPAY ==
[2024-10-17 23:26] VITALS: PULSE 82; O2SAT 99; BMI 18.0
[2024-10-17 23:51] VITALS: BP 101/45; PULSE 74; RESP 18; TEMP 36.6; O2SAT 98
--- NOTE | 2024-10-18 01:48 | PC.NURSE ---
no answer when called to be seen by provider
--- NOTE | 2024-10-18 02:00 | PC.NURSE ---
called pt in er lobby and outside and no answer at this time.
--- NOTE | 2024-10-18 02:05 | PC.NURSE ---
called pt in er lobby and outside of er and no answer.
--- NOTE | 2024-10-18 02:29 | PD.EDADDENDU ---
Emergency Room Addendum Addendum Narrative: When I looked for the patient to start my evaluation, I was told the patient eloped. Zeeshan Peña MD
== END 2024-10-18 00:20 | disposition left against medical advice (07) ==
LOC: SERX 10-18 02:15
PROVIDERS: Emergency Provider Emergency Medicine
DX: Z53.21 Procedure and treatment not carried out due to patient leaving prior to being seen by health care provider (principal)
CPT/HCPCS: 99282

== ENCOUNTER 2024-11-14 10:47 | Emergency (ER) | payer OTHER, MEDICAID, SELFPAY ==
[2024-11-14 11:02] VITALS: BP 109/67; PULSE 74; RESP 17; TEMP 36.9; O2SAT 97; BMI 18.8
--- NOTE | 2024-11-14 11:11 | XR_ITS ---
Examination: CT abdomen and pelvis without contrast. Coronal 3-D reconstructions. Sagittal 2-D reconstructions. Date and time of exam:November 14, 2024 1150 hours INDICATIONS: Right lower abdominal pain right flank pain with nausea today CTDI: vol (mGy): 4.01 DLP: (mGycm): 216 Technique: Axial images of the abdomen have been obtained, 3 mm slice thickness Intravenous contrast material has not been administered. Low dose protocols were performed. One or more of the following dose reduction techniques were used; automated exposure control, adjustment of the mA and/or KV according to patient size, use of iterative reconstruction technique. Findings: No focal liver or splenic lesions Right ventriculo peritoneal shunt tube No pancreatic mass No renal or ureteral calculi Aorta is not enlarged No bowel obstruction No prostatomegaly Contracted urinary bladder No definite pericecal inflammatory change Probable normal size appendix on coronal image 48 incomplete visualized IMPRESSION: The study is significantly limited without intravenous contrast No CT findings of appendicitis or bowel obstruction
--- NOTE | 2024-11-14 11:11 | PD.EDRME ---
Rapid Medical Screening Exam [facility] Arrival date/time: 11/14/24 10:47 24-year-old male presents to the emergency department for complaints of right-sided abdominal pain ongoing x 1 day with dysuria Chief Complaint: Abdominal Pain Vital signs: Vital Signs Temperature 98.5 F 11/14/24 11:02 Pulse Rate 74 11/14/24 11:02 Respiratory Rate 17 11/14/24 11:02 Blood Pressure 109/67 11/14/24 11:02 Pulse Oximetry (%) 97 11/14/24 11:02 Oxygen Delivery Method Room Air 11/14/24 11:02
[2024-11-14 11:29] LABS: Basophils # (Auto) 0.0 Thou/mm3 (0.0-0.2); Basophils % (Auto) 0 % (0-2.5); Eosinophils # (Auto) 0.1 Thou/mm3 (0.0-0.5); Eosinophils % (Auto) 1 % (0-10); Hematocrit 38.4 % (41.0-53.0); Hemoglobin 12.9 g/dL (13.5-16.0); Immature Granulocytes Auto 0.01 Thou/mm3 (0.00-0.00); Lymphocytes # (Auto) 1.5 Thou/mm3 (1.0-4.8); Lymphocytes % (Auto) 26 % (10-50); Mean Corpuscular HGB Conc 33.6 g/dl (31.0-37.0); Mean Corpuscular Hemoglobin 31.9 pg (25.0-35.0); Mean Corpuscular Volume 95 fL (80-100); Monocytes # (Auto) 0.4 Thou/mm3 (0.0-0.8); Monocytes % (Auto) 7 % (0-12); Neutrophils # (Auto) 3.7 Thou/mm3 (1.8-7.7); Neutrophils % (Auto) 65 % (37-80); Nucleated Red Blood Cell # 0.00 Thou/mm3 (0.00-0.00); Nucleated Red Blood Cell % 0 /100 WBC (0); Platelet Count 247 Thou/mm3 (140-440); RDW Standard Deviation 43.8 fL (35.1-43.9); Red Blood Count 4.04 Miln/mm3 (4.50-5.90); White Blood Count 5.7 Thou/mm3 (3.8-10.6)
[2024-11-14 11:33] LABS: Collection Type, Urine Clean Catch
[2024-11-14 12:03] LABS: Bilirubin,Urine Negative (Negative); Blood,Urine Negative (Negative); Clarity,Urine Clear (Clear/Hazy); Color,Urine Yellow (Lt Yel-Yel); Glucose, Urine Negative (Negative); Ketones,Urine Negative (Negative); Leukocyte Esterase,Urine Negative (Negative); Nitrite,Urine Negative (Negative); PH,Urine 6.5 (5.0-7.0); Protein,Urine Negative (Neg - Trace); RBC,Urine 4 /hpf (0-3); Specific Gravity,Urine 1.026 (1.001-1.035); Squamous Epithelial Cell,Urine < 1 /hpf (0-5); Urobilinogen,Urine Negative mg/dL (0.0-1.0); WBC,Urine 1 /hpf (0-5)
[2024-11-14 12:06] LABS: Alanine Aminotransferase 13 U/L (10-49); Albumin, Serum 4.5 gm/dL (3.5-5.0); Albumin/Globulin Ratio 2.4 (1.2-2.2); Alkaline Phosphatase 63 U/L (46-116); Anion Gap 5 (7-16); Aspartate Amino Transferase 22 U/L (0-34); BUN/Creatinine Ratio 9 Ratio (12-20); Bilirubin,Total 0.3 mg/dL (0.3-1.2); Blood Urea Nitrogen 8 mg/dL (9-23); C-Reactive Protein < 0.5 mg/dL (0.0-0.9); Calcium 9.7 mg/dL (8.3-10.6); Calcium (Corrected) 9.7 mg/dL (8.5-10.1); Carbon Dioxide 31.5 mMol/L (20.0-31.0); Chloride 108 mMol/L (98-107); Creatinine (Component) 0.9 mg/dL (0.6-1.3); Estimated Creatinine Clearance 97.4 mL/min (>60); Globulin 1.9 gm/dL (2.3-3.5); Glucose 75 mg/dL (74-106); Osmolality,Calculated 284 (275-295); Potassium 4.2 mMol/L (3.4-5.1); Sodium 144 mMol/L (136-145); Total Protein 6.4 gm/dL (5.7-8.2); eGFR > 60 See Note
--- NOTE | 2024-11-14 13:38 | PD.EDABDPN ---
ED Abdominal Pain RME/HPI General Chief Complaint: Abdominal Pain Stated complaint: RLQ ABD PAIN, PAINFUL URINATION Time seen by provider: 11/14/24 12:22 Arrival date/time: 11/14/24 10:47 RME / HPI RME / HPI narrative: 24-year-old male presents to the emergency department for complaints of right-sided abdominal pain with dysuria. Onset of symptoms earlier this morning severity of symptoms moderate no fever no vomiting no diarrhea no constipation denies any other complaints. Related Data Home Medications ?Medication ?Instructions ?Recorded ?Confirmed buspirone 7.5 mg tablet 10 mg PO BID 03/17/24 03/17/24 clobazam 10 mg tablet 10 mg PO BID 03/17/24 03/17/24 diazepam 20 mg/2 spray (10 mg/0.1 20 mg intranasal PRN PRN Seizure 03/17/24 03/17/24 mL x 2) nasal spray (Valtoco) Activity eslicarbazepine 800 mg tablet 800 mg PO 1XD 03/17/24 03/17/24 (Aptiom) Previous Rx's ?Medication ?Instructions ?Recorded meclizine 25 mg tablet 25 mg PO BID PRN dizziness #20 tabs 06/29/24 albuterol sulfate 90 mcg/actuation 2 inh inhalation Q6H PRN shortness 08/26/24 breath activated powder inhaler of breath or wheezing #1 ea (ProAir RespiClick) ibuprofen 600 mg tablet 600 mg PO Q6H #30 tabs 09/05/24 Allergies Allergy/AdvReac Type Severity Reaction Status Date / Time No Known Allergies Allergy Verified 10/17/24 23:26 Review of Systems Review of Systems Narrative Review of Systems: Review of system reviewed and within normal limits except mentioned in HPI ED Exam Narrative Physical exam: VITAL SIGNS: Reviewed. GENERAL APPEARANCE: Alert and interactive, follows commands, no acute distress, HEAD AND FACE: Non-traumatic. ENT: PERRL, pink conjunctivitis, eyelid no trauma, Mucous membrane moist. NECK: Supple, nontender, no nuchal rigidity. CHEST: No tenderness, no crepitus, no paradoxical movement, no retractions. LUNGS: Clear, well ventilated, symmetric, no rales, no wheezing, no ronchi, no stridor, good breath sounds bilaterally. HEART: Regular rate, regular rhythm, no murmur, no gallops. ABDOMEN: Soft, positive bowel sounds, nondistended, no guarding, nontender, no rebound, no masses, RECTAL: Deferred. GENITAL: Deferred. NEUROLOGICAL: Gross motor function intact sensory function intact, Appropriate for age. MUSCULOSKELETAL: low back nontender, full range of motion. EXTREMITIES: Nontender, full range of motion. SKIN: Color pink, dry, no rash, no lacerations, no abrasions, no contusions. LYMPHATICS: Deferred. Course Quality Measures none Orders Category Date Time Status CT abdomen pelvis wo con Stat Exams 11/14/24 11:11 Completed C-Reactive Protein Stat Lab 11/14/24 11:22 Completed CBC Stat Lab 11/14/24 11:22 Completed Comprehensive Metabolic Panel Stat Lab 11/14/24 11:22 Completed Urinalysis Stat Lab 11/14/24 11:28 Completed Vital Signs Vital signs: Vital Signs Temperature 98.5 F 11/14/24 11:02 Pulse Rate 74 11/14/24 11:02 Respiratory Rate 17 11/14/24 11:02 Blood Pressure 109/67 11/14/24 11:02 Pulse Oximetry (%) 97 11/14/24 11:02 Oxygen Delivery Method Room Air 11/14/24 11:02 Abdominal Pain MDM MDM Narrative MDM Narrative:: 24-year-old male presents to the emergency department for complaints of right-sided abdominal pain with dysuria. Onset of symptoms earlier this morning severity of symptoms moderate no fever no vomiting no diarrhea no constipation denies any other complaints. CT scan of the abdomen pelvis came back unremarkable. Laboratory workup also came back normal including urinalysis except for mild hematuria no UTI. Results discussed with the patient. Patient is not having any pain prior to discharge. Stable for discharge home Patient data External records reviewed:: None Clinical information provided by:: patient Social determinants that could affect healthcare access:: none Patient has the following chronic illnesses:: None How is presenting disease/condition affected by chronic disease/condition?: no chronic disease Evaluation data The following diagnostics were reviewed and interpreted by me:: lab results and radiology exam(s) Lab and/or radiology exams considered but not ordered:: None Interpretation Summary: None Medications / Prescriptions Medications or Prescriptions considered but not ordered:: None Medication administrations:: None Consultations Consultation(s) initiated? (list below): No Diagnosis Differential diagnosis abdominal pain: abdominal pain, constipation and other (Renal colic) Most likely diagnosis given after review of the tests above:: Abdominal pain Admission Indicated Admission indicated?: not indicated Admission Request Was there a request for admission?: No Disposition Plan Disposition Plan: Discharge Discharge Attestation Discharge Attestation: The patient and all family members were given an opportunity to ask questions and understood the discharge instructions. Discharge instructions specifically effects, indications for sooner follow up or return to the emergency department, and the expected course of current diagnosis. Patient condition: Stable Discharge Plan Plan Patient Disposition: HOME (Self Care) Discharge Disposition comment: Stable Prescriptions/Referrals Prescriptions/Med Rec: No Action ProAir RespiClick 90 mcg/actuation aerosol powdr breath activated 2 inh inhalation Q6H PRN (Reason: shortness of breath or wheezing) Qty: 1 0RF buspirone 7.5 mg tablet 10 mg PO BID Aptiom 800 mg tablet 800 mg PO 1XD Patient Comments: TAKE 1 TABLET BY MOUTH EVERY DAY Valtoco 20 mg/2 spray (10mg/0.1mL x2) spray,non-aerosol 20 mg INTRANASAL PRN PRN (Reason: Seizure Activity) clobazam 10 mg tablet 10 mg PO BID Patient Comments: TAKE 1 TABLET BY MOUTH TWICE A DAY meclizine 25 mg tablet 25 mg PO BID PRN (Reason: dizziness) Qty: 20 0RF ibuprofen 600 mg tablet 600 mg PO Q6H Qty: 30 0RF Referrals: No Primary/Family,Physician [Primary Care Provider] - In 1 week Problem List Clinical Impression: Abdominal pain Patient/Caregiver Discharge Instructions Discharge Activity: activity as tolerated Education Materials: Abdominal Pain Additional Instructions: Thank you for the opportunity for serving you today. You are stable for discharged . You are advised to: Follow-up with your PCP in 1 to 2 days Return to ED for worsening of symptoms Increase oral fluids Take [id number] Tylenol Motrin as needed for pain Print Language: Hungarian Stand Alone Forms: Rosa Award Info., Patient Portal Info Letter
== END 2024-11-14 13:45 | disposition home or self-care (01) ==
PROVIDERS: Nurse Practitioner Primary Care; Emergency Provider Family Medicine
DX: R10.31 Right lower quadrant pain (principal)
CPT/HCPCS: 36415; 74176; 80053; 81001; 85025; 86140; 99283

== ENCOUNTER 2024-11-22 21:20 | Emergency (ER) | payer OTHER, MEDICAID, SELFPAY ==
[2024-11-22 21:21] VITALS: PULSE 86; RESP 18; O2SAT 99; BMI 18.0
[2024-11-22 21:54] VITALS: BP 136/93; PULSE 71; RESP 18; TEMP 37; O2SAT 100
--- NOTE | 2024-11-22 22:09 | PD.EDRME ---
Rapid Medical Screening Exam [facility] Arrival date/time: 11/22/24 21:20 24M with history of psych/drug use presents to ED with 1 day of N/V and ab pain. Some SOB, but patient denies URI symptoms. Chief Complaint: Abdominal Pain Vital signs: Vital Signs Temperature 98.6 F 11/22/24 21:54 Pulse Rate 71 11/22/24 21:54 Respiratory Rate 18 11/22/24 21:54 Blood Pressure 136/93 H 11/22/24 21:54 Pulse Oximetry (%) 100 11/22/24 21:54 Oxygen Delivery Method Room Air 11/22/24 21:54
[2024-11-22 22:44] LABS: Basophils # (Auto) 0.0 Thou/mm3 (0.0-0.2); Basophils % (Auto) 0 % (0-2.5); Eosinophils # (Auto) 0.0 Thou/mm3 (0.0-0.5); Eosinophils % (Auto) 0 % (0-10); Hematocrit 41.2 % (41.0-53.0); Hemoglobin 13.8 g/dL (13.5-16.0); Immature Granulocytes Auto 0.06 Thou/mm3 (0.00-0.00); Lymphocytes # (Auto) 1.7 Thou/mm3 (1.0-4.8); Lymphocytes % (Auto) 13 % (10-50); Mean Corpuscular HGB Conc 33.5 g/dl (31.0-37.0); Mean Corpuscular Hemoglobin 31.4 pg (25.0-35.0); Mean Corpuscular Volume 94 fL (80-100); Monocytes # (Auto) 1.3 Thou/mm3 (0.0-0.8); Monocytes % (Auto) 10 % (0-12); Neutrophils # (Auto) 9.8 Thou/mm3 (1.8-7.7); Neutrophils % (Auto) 76 % (37-80); Nucleated Red Blood Cell # 0.00 Thou/mm3 (0.00-0.00); Nucleated Red Blood Cell % 0 /100 WBC (0); Platelet Count 276 Thou/mm3 (140-440); RDW Standard Deviation 43.1 fL (35.1-43.9); Red Blood Count 4.39 Miln/mm3 (4.50-5.90); White Blood Count 12.9 Thou/mm3 (3.8-10.6)
[2024-11-22 23:03] LABS: Alanine Aminotransferase 24 U/L (10-49); Albumin, Serum 5.3 gm/dL (3.5-5.0); Albumin/Globulin Ratio 2.4 (1.2-2.2); Alcohol, Blood Medical < 3.0 mg/dL (0-10.0); Alkaline Phosphatase 69 U/L (46-116); Anion Gap 10 (7-16); Aspartate Amino Transferase 35 U/L (0-34); BUN/Creatinine Ratio 11 Ratio (12-20); Bilirubin,Total 0.4 mg/dL (0.3-1.2); Blood Urea Nitrogen 16 mg/dL (9-23); Calcium 10.5 mg/dL (8.3-10.6); Calcium (Corrected) 10.5 mg/dL (8.5-10.1); Carbon Dioxide 27.3 mMol/L (20.0-31.0); Chloride 108 mMol/L (98-107); Creatinine (Component) 1.5 mg/dL (0.6-1.3); Estimated Creatinine Clearance 56.0 mL/min (>60); Globulin 2.2 gm/dL (2.3-3.5); Glucose 86 mg/dL (74-106); Osmolality,Calculated 288 (275-295); Potassium 3.8 mMol/L (3.4-5.1); Sodium 145 mMol/L (136-145); Total Protein 7.5 gm/dL (5.7-8.2); eGFR > 60 See Note
[2024-11-22 23:47] LABS: Collection Type, Urine Clean Catch
--- NOTE | 2024-11-22 23:58 | PC.NURSE ---
VALIUM NOT AVAILABLE IN [facility] REGISTERED TO GET FROM UPSTAIRS ADVISED REGISTRATION TO REGISTER
[2024-11-23] MEDS: METOCLOPRAMIDE 5 MG TABLET 10 MG PO
[2024-11-23 00:16] LABS: Amorphous Crystals,Urine Present (Absent); Bacteria,Urine Rare; Bilirubin,Urine Negative (Negative); Blood,Urine 1+ (Negative); Clarity,Urine Turbid (Clear/Hazy); Color,Urine Yellow (Lt Yel-Yel); Glucose, Urine Negative (Negative); Granular Casts,Urine 1 /hpf (0-1); Hyaline Casts,Urine < 1 /hpf (0-1); Ketones,Urine 1+ (Negative); Leukocyte Esterase,Urine Negative (Negative); Nitrite,Urine Negative (Negative); PH,Urine 6.0 (5.0-7.0); Protein,Urine 1+ (Neg - Trace); RBC,Urine 2 /hpf (0-3); Specific Gravity,Urine 1.017 (1.001-1.035); Squamous Epithelial Cell,Urine 1 /hpf (0-5); Urobilinogen,Urine Negative mg/dL (0.0-1.0); WBC,Urine 206 /hpf (0-5)
[2024-11-23 00:20] LABS: Culture Indicated,Urine Yes
[2024-11-23] MEDS: DIAZEPAM 5 MG TABLET PO (00:34)
[2024-11-23 00:39] LABS: Amphetamine/Methamp Scrn,U Negative (Negative); Barbiturate Screen,Urine Negative (Negative); Benzodiazepines Screen,Urine Positive (Negative); Benzoylecgonine Screen, Ur Negative (Negative); Fentanyl Screen,Urine Negative (Negative); Opiate Screen,Urine Negative (Negative); THC Screen,Urine Positive (Negative)
--- NOTE | 2024-11-23 00:45 | PD.EDABDPN ---
ED Abdominal Pain RME/HPI General Chief Complaint: Abdominal Pain Stated complaint: ABD PAIN NV Arrival date/time: 11/22/24 21:20 RME / HPI RME / HPI narrative: 11/22/24 21:20 24M with history of psych/drug use presents to ED with 1 day of N/V and ab pain. Some SOB, but patient denies URI symptoms. Dr. Moss?s Main ED Evaluation: 24yo male initially presenting with abdominal pain, underwent basic work-up including UA with evidence of pyuria and received both Reglan and Valium with resolution of N/V for several days, now reports having intermittent dyspnea over the last several days. Has a cough, but no fever or chills. No URI. 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 No formal diagnosis of asthma to date. Related Data Home Medications ?Medication ?Instructions ?Recorded ?Confirmed buspirone 7.5 mg tablet 10 mg PO BID 03/17/24 03/17/24 clobazam 10 mg tablet 10 mg PO BID 03/17/24 03/17/24 diazepam 20 mg/2 spray (10 mg/0.1 20 mg intranasal PRN PRN Seizure 03/17/24 03/17/24 mL x 2) nasal spray (Valtoco) Activity eslicarbazepine 800 mg tablet 800 mg PO 1XD 03/17/24 03/17/24 (Aptiom) Previous Rx's ?Medication ?Instructions ?Recorded meclizine 25 mg tablet 25 mg PO BID PRN dizziness #20 tabs 06/29/24 albuterol sulfate 90 mcg/actuation 2 inh inhalation Q6H PRN shortness 08/26/24 breath activated powder inhaler of breath or wheezing #1 ea (ProAir RespiClick) ibuprofen 600 mg tablet 600 mg PO Q6H #30 tabs 09/05/24 albuterol sulfate 90 mcg/actuation 2 puff inhalation Q6H PRN 11/23/24 aerosol inhaler shortness of breath or wheezing #8.5 grams ciprofloxacin HCl 500 mg tablet 500 mg PO BID #14 tabs 11/23/24 prednisone 20 mg tablet 40 mg PO QDAY 5 days #10 tabs 11/23/24 Allergies Allergy/AdvReac Type Severity Reaction Status Date / Time No Known Allergies Allergy Verified 11/22/24 21:26 Review of Systems Review of Systems Systems Reviewed: All systems reviewed, normal except as documented Past Medical History Past Medical History NEUROLOGIC: Positive Neurological Disorders (brain cysts) and Seizures CARDIAC: Negative Congestive Heart Failure RESPIRATORY: Negative Chronic Obstructive Pulmonary Disease (COPD) GENITOURINARY: Negative Renal Disease ENDOCRINE: Negative Diabetes Mellitus Type 1 or Diabetes Mellitus Type 2 OTHER HISTORY: Negative Anesthesia Reactions Surgical History SURGICAL: Positive Neurologic Surgery and Brain Shunt Social History SMOKING STATUS: Current every day smoker ED Exam Narrative Physical exam: GENERAL APPEARANCE: alert and oriented x 4, well-developed, well-nourished, nontoxic, resting comfortably, no acute distress VITALS: All vitals were reviewed and the pulse ox is 100% on room air, which is normal according to my interpretation. HEENT: Normocephalic, atraumatic; pupils equal, round, reactive to light; EOMI; mucous membranes pink, moist; oropharynx clear NECK: Supple LUNGS: Faint end-expiratory wheezing, no rales, no rhonchi HEART: Regular rate, regular rhythm; normal S1, S2; no murmurs ABDOMEN: non distended; normal BS; soft, no tenderness, no guarding, no rebound; no masses, no organomegaly, no hernia BACK: no CVA tenderness EXTREMITIES: atraumatic; no edema NEUROLOGIC: awake; alert and oriented x4; cranial nerves II-XII grossly intact; no focal sensory or motor deficits PSYCHIATRIC: appropriate mood and affect SKIN: warm, dry, normal color; no rashes Course Course Course Narrative: CXR is ordered for determining the etiology of dyspnea. Quality Measures none Orders Category Date Time Status XR chest 1V portable Stat Exams 11/23/24 01:13 Completed Alcohol, Blood Medical Stat Lab 11/22/24 22:20 Completed CBC Stat Lab 11/22/24 22:20 Completed CMP [Comprehensive Metabolic Panel] Stat Lab 11/22/24 22:20 Completed Drug Screen,Urine Stat Lab 11/22/24 23:30 Completed Urinalysis, C/S if Indicated Stat Lab 11/22/24 23:30 Completed Urine Culture Stat Lab 11/22/24 23:30 Received Albuterol/Ipratr Rt Eileen [Duoneb Rt Eileen] Med 11/23/24 01:13 Discontinued 3 ml INH X1 ONE Diazepam [Valium] Med 11/22/24 22:09 Discontinued 5 mg PO X1 ONE Metoclopramide [Reglan] Med 11/22/24 22:09 Discontinued 10 mg PO X1 ONE predniSONE Med 11/23/24 01:13 Discontinued 40 mg PO X1 ONE Vital Signs Vital signs: Vital Signs Temperature 98.6 F 11/22/24 21:54 Pulse Rate 71 11/22/24 21:54 Respiratory Rate 18 11/22/24 21:54 Blood Pressure 136/93 H 11/22/24 21:54 Pulse Oximetry (%) 100 11/22/24 21:54 Oxygen Delivery Method Room Air 11/22/24 21:54 Abdominal Pain MDM MDM Narrative MDM Narrative:: Scribe Attestation: 11/23/24 - Sharlene Hdez am scribing for and in the presence of Dr. Moss. 24yo male initially presenting with abdominal pain, underwent basic work-up including UA with evidence of pyuria and received both Reglan and Valium with resolution of N/V, now reports having intermittent dyspnea over the last several days. Has a cough, but no fever or chills. Please see PE findings. Patient initially underwent abdominal work-up which demonstrated evidence of UTI. Patient subsquently complained of shortness of breath and was treated with nebulizer therapy. Although patient denied prior diagnosis of asthma, CXR demonstrates hyperexpansion, suggestive of underlying disease process. Will place on antibiotic for UTI, MDI for bronchospasm, and short course of steroids. Patient data External records reviewed:: [facility] previous records (Per chart review, patient was seen here on 11/14/24 for abdominal pain.) Clinical information provided by:: patient Social determinants that could affect healthcare access:: none Patient has the following chronic illnesses:: seizures How is presenting disease/condition affected by chronic disease/condition?: uneffected by Evaluation data The following diagnostics were reviewed and interpreted by me:: lab results and radiology exam(s) Lab and/or radiology exams considered but not ordered:: none Interpretation Summary: CXR shows teardrop -appearing heart, clear lung lentz which are hyperexpanded, [employer] shunt catheter coursing through the posterior thorax, no effusions, according to my interpretation. Medications / Prescriptions Medications or Prescriptions considered but not ordered:: none Medication administrations:: Medication Administration History Discontinued Medications Albuterol/Ipratropium (Albuterol/Ipratropium (Duoneb) Rt Eileen 3 Ml Nebu) 3 ml INH X1 ONE Stop: 11/23/24 01:14 Last Admin: 11/23/24 01:30 Dose: 3 ml Documented By: EMELYN Diazepam (Diazepam 5 Mg Tablet) 5 mg PO X1 ONE Stop: 11/22/24 22:10 Last Admin: 11/23/24 00:34 Dose: 5 mg Documented By: SUAD Metoclopramide HCl (Metoclopramide 5 Mg Tablet) 10 mg PO X1 ONE Stop: 11/22/24 22:10 Last Admin: 11/23/24 00:00 Dose: 10 mg Documented By: SUAD Prednisone (Prednisone 20 Mg Tablet) 40 mg PO X1 ONE Stop: 11/23/24 01:14 Last Admin: 11/23/24 01:27 Dose: 40 mg Documented By: SUAD see above Consultations Consultation(s) initiated? (list below): No Diagnosis Differential diagnosis abdominal pain: gastroenteritis and other (viral syndrome, dehydration, electrolyte abnormality, pneumonia) Most likely diagnosis given after review of the tests above:: see clinical impression below Admission Indicated Admission indicated?: not indicated Admission Request Was there a request for admission?: No Disposition Plan Disposition Plan: Discharge Discharge Attestation Discharge Attestation: The patient and all family members were given an opportunity to ask questions and understood the discharge instructions. Discharge instructions specifically effects, indications for sooner follow up or return to the emergency department, and the expected course of current diagnosis. Patient condition: Stable Discharge Plan Plan Patient Disposition: HOME (Self Care) Discharge Disposition comment: STABLE Prescriptions/Referrals Prescriptions/Med Rec: New albuterol sulfate 90 mcg/actuation HFA aerosol inhaler 2 puff inhalation Q6H PRN (Reason: shortness of breath or wheezing) Qty: 8.5 1RF prednisone 20 mg tablet 40 mg PO QDAY 5 Days Qty: 10 0RF Taper: Prednisone Taper 40 mg DAILY for 5 Days and 0 Hour ciprofloxacin HCl 500 mg tablet 500 mg PO BID Qty: 14 0RF No Action ProAir RespiClick 90 mcg/actuation aerosol powdr breath activated 2 inh inhalation Q6H PRN (Reason: shortness of breath or wheezing) Qty: 1 0RF buspirone 7.5 mg tablet 10 mg PO BID Aptiom 800 mg tablet 800 mg PO 1XD Patient Comments: TAKE 1 TABLET BY MOUTH EVERY DAY Valtoco 20 mg/2 spray (10mg/0.1mL x2) spray,non-aerosol 20 mg INTRANASAL PRN PRN (Reason: Seizure Activity) clobazam 10 mg tablet 10 mg PO BID Patient Comments: TAKE 1 TABLET BY MOUTH TWICE A DAY meclizine 25 mg tablet 25 mg PO BID PRN (Reason: dizziness) Qty: 20 0RF ibuprofen 600 mg tablet 600 mg PO Q6H Qty: 30 0RF Referrals: Kiki Cade FNP-C [Primary Care Provider] - In 1 week Problem List Clinical Impression: Acute UTI (urinary tract infection), Bronchospasm, acute Patient/Caregiver Discharge Instructions Discharge Activity: activity as tolerated Diet Instructions: Force fluids Education Materials: Asthma Action Plan, Urinary Tract Infections in Men, Asthma Additional Instructions: Medications as directed. Follow-up with primary care doctor and return for fever escalating abdominal pain persistent vomiting or worsening illness. Print Language: Occitan Stand Alone Forms: Rosa Award Info., Patient Portal Info Letter
--- NOTE | 2024-11-23 01:13 | XR_ITS ---
Examination: AP chest single view Technique one AP portable upright chest single view Date and time: November 23, 2024, 0122 hrs., Comparison September 05, 2024 Indications: Shortness of breath chills nausea vomiting beginning 2 days ago Findings: Right BACON SLICER shunt tube Normal heart size. No lobar pneumonia. The osseous structures are intact Impression: Negative for pneumonia
[2024-11-23 01:30] VITALS: PULSE 84; RESP 18; O2SAT 99
[2024-11-23] MEDS: ALBUTEROL/IPRATROPIUM (Duoneb) RT SOL 3 ML NEBU INH (01:30)
== END 2024-11-23 01:58 | disposition home or self-care (01) ==
PROVIDERS: Physician Assistant; Emergency Provider Emergency Medicine
DX: J98.01 Acute bronchospasm (principal); N39.0 Urinary tract infection, site not specified; F17.200 Nicotine dependence, unspecified, uncomplicated
CPT/HCPCS: 36415; 71045; 80053; 80307; 80320; 81001; 85025; 87086; 94640; 99284; A9270; J7512; G0480

== ENCOUNTER 2024-11-27 08:03 | Emergency (ER) | payer OTHER, MEDICAID, SELFPAY ==
[2024-11-27 08:07] VITALS: PULSE 66; RESP 18; O2SAT 99; BMI 18.0
[2024-11-27 08:31] VITALS: BP 117/81; PULSE 65; RESP 16; TEMP 37.1; O2SAT 99
--- NOTE | 2024-11-27 09:39 | EKG_ITS ---
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
--- NOTE | 2024-11-27 09:40 | EDNOTE_ITS ---
ED Seizures RME/HPI General Chief Complaint: Seizure Stated Complaint: SEIZURE Time Seen by Provider: 11/27/24 08:33 Arrival date/time: 11/27/24 08:03 RME / HPI RME / HPI Narrative: 24-year-old male here for evaluation of seizure. Patient and family members note that he has frequent seizures with the last one occurring few weeks ago. Has history of both tonic-clonic seizures as well as stress seizures . Family notes that the last few seizures have all been stressed seizures. Today he had been feeling nauseous, dizzy, weak. Had vomited in the bathroom and family member had gotten him to sit down. Shortly after that he fell onto his side and had a stress seizure . This lasted less than 1 minute and was noted to bump his head on the ground when this happened. After this he had a second episode that appeared similar to his stress seizures in which he was bumping his head against the tub and against the floor several times. Currently complaining of a headache as well as some pain to his chest with breathing and feeling a bit shaky. Past medical history includes seizures, 2 cyst in head, asthma. Takes Aptium 1000 mg daily, clobazam 10 mg twice daily, fluoxetine, trazodone 75 mg daily, magnesium glycinate, vitamins, Cipro for the past 3 days for UTI, and prednisone for the last few days for asthma. Related Data Home Medications ?Medication ?Instructions ?Recorded ?Confirmed buspirone 7.5 mg tablet 10 mg PO BID 03/17/24 clobazam 10 mg tablet 10 mg PO BID 03/17/24 diazepam 20 mg/2 spray (10 mg/0.1 20 mg intranasal PRN PRN Seizure 03/17/24 03/17/24 mL x 2) nasal spray (Valtoco) Activity eslicarbazepine 800 mg tablet 800 mg PO 1XD 03/17/24 0 03/17/24 (Aptiom) Previous Rx's ?Medication ?Instructions ?Recorded meclizine 25 mg tablet 25 mg PO BID PRN dizziness # 20 tabs 06/29/24 albuterol sulfate 90 mcg/actuation 2 inh inhalation Q6 H PRN shortness 08/26/24 breath activated powder inhaler of breath or wheezing #1 ea (ProAir RespiClick) ibuprofen 600 mg tablet 600 mg PO Q6H #30 tabs 09/05 albuterol sulfate 90 mcg/actuation 2 puff inhalation Q 6H PRN 11/23/24 aerosol inhaler shortness of breath or wheez ing #8.5 grams ciprofloxacin HCl 500 mg tablet 500 mg PO BID #14 tabs 11/23/24 prednisone 20 mg tablet 40 mg PO QDAY 5 days #10 tab s 11/23/24 Allergies Allergy/AdvReac Type Severity Reaction Status Date / Time No Known Allergies Allergy Verified 11/27/24 08:12 Review of Systems Review of Systems Systems Reviewed: All systems reviewed, normal except as documented Past Medical History Past Medical History NEUROLOGIC: Positive Neurological Disorders and Seizures PSYCHO/SOCIAL: Positive Recreational Drug Use and Anxiety Surgical History SURGICAL: Positive Neurologic Surgery and Brain Shunt Social History SMOKING STATUS: Current every day smoker Past Medical History Comments PMH COMMENT: Seizure disorder, asthma ED Exam Narrative Physical exam: Constitutional: Awake, alert, nontoxic, no acute distress HEENT: Normocephalic, atraumatic, extraocular movements intact. Neck: Supple CV: Regular rate and rhythm, no murmurs/rubs/gallops Lungs: Clear to auscultation BL, no respiratory distress. Abd: Soft, mild discomfort to palpation of upper abdomen, ND, no HSM noted to palpation, no rebound or guarding noted. Extremities: No deformities, no edema noted Neuro: AAOx3, CN 2-12 GIBL, no acute neuro deficit noted. Skin: Warm, dry, intact Course Course Course Narrative: 1220h: Checked on patient, he is feeling well at this time, no additional symptoms. Labs reviewed?no significant acute abnormalities noted. CT head is negative for acute process. Okay for discharge home at this time. Advised on outpatient follow-up with neurology which he has an appointment with later this month. Quality Measures none Orders Category Date Time Status Sales Activity Manager STAT Care 11/27/24 09:39 Completed Continuous Pulse Oximetry STAT Care 11/27/24 09:39 Completed EKG (ED ONLY) *Do not use* NOW Care 11/27/24 09:39 Completed Insert IV STAT Care 11/27/24 09:39 Completed Seizure precautions NOW Care 11/27/24 09:[address] head/brain wo con Stat Exams 11/27/24 09:39 Completed EKG (ED Only) Stat Exams 11/27/24 09:39 Draft CBC Stat Lab 11/27/24 08:26 Completed Comprehensive Metabolic Panel Stat Lab 11/27/24 08:26 Completed Drug Screen,Urine Stat Lab 11/27/24 10:02 Completed Lipase Stat Lab 11/27/24 08:26 Completed Magnesium Stat Lab 11/27/24 08:26 Completed Prolactin* Stat Lab 11/27/24 08:26 Received Urinalysis Stat Lab 11/27/24 10:02 Completed Vital Signs Vital signs: Vital Signs Temperature 98.8 F 11/27/24 08:31 Pulse Rate 65 11/27/24 08:31 Respiratory Rate 16 11/27/24 08:31 Blood Pressure 117/81 11/27/24 08:31 Pulse Oximetry (%) 99 11/27/24 08:31 Oxygen Delivery Method Room Air 11/27/24 08:31 Pulse ox is 99% on room air which is adequate. Seizure Patient data External records reviewed:: [facility] previous records Clinical information provided by:: patient and family Social determinants that could affect healthcare access:: none Patient has the following chronic illnesses:: seizure disorder How is presenting disease/condition affected by chronic disease/condition?: caused by Evaluation data The following diagnostics were reviewed and interpreted by me:: lab results and radiology exam(s) Lab and/or radiology exams considered but not ordered:: none Interpretation Summary: Laboratory Results WBC 8.4 Thou/mm3 (3.8-10.6) 11/27/24 08:26 RBC 4.11 Miln/mm3 (4.50-5.90) L 11/27/24 08:26 Hgb 13.0 g/dL (13.5-16.0) L 11/27/24 08:26 Hct 39.0 % (41.0-53.0) L 11/27/24 08:26 MCV 95 fL (80-100) 11/27/24 08:26 MCH 31.6 pg (25.0-35.0) 11/27/24 08:26 MCHC 33.3 g/dl (31.0-37.0) 11/27/24 08:26 RDW Std Deviation 43.8 fL (35.1-43.9) 11/27/24 08:26 Plt Count 251 Thou/mm3 (140-440) 11/27/24 08:26 Neut % (Auto) 81 % (37-80) H 11/27/24 08:26 Lymph % (Auto) 14 % (10-50) 11/27/24 08:26 [place] % (Auto) 5 % (0-12) 11/27/24 08:26 Eos % (Auto) 0 % (0-10) 11/27/24 08:26 Baso % (Auto) 0 % (0-2.5) 11/27/24 08:26 Neut # (Auto) 6.8 Thou/mm3 (1.8-7.7) 11/27/24 08:26 Lymph # (Auto) 1.1 Thou/mm3 (1.0-4.8) 11/27/24 08:26 [place] # (Auto) 0.4 Thou/mm3 (0.0-0.8) 11/27/24 08:26 Eos # (Auto) 0.0 Thou/mm3 (0.0-0.5) 11/27/24 08: Baso # (Auto) 0.0 Thou/mm3 (0.0-0.2) 11/27/24 08:26 Immature Gran # (Auto) 0.03 Thou/mm3 (0.00-0.00) H 11/27/24 08:26 Absolute Nucleated RBC 0.00 Thou/mm3 (0.00-0.00) 11/27/24 08: Immature Gran % 0 % (0-0) 11/27/24 08: Nucleated RBC % 0 /100 WBC (0) 11/27/24 08:26 Sodium 144 mMol/L (136-145) 11/27/24 08:26 Potassium 4.3 mMol/L (3.4-5.1) 11/27/24 08:26 Chloride 107 mMol/L (98-107) 11/27/24 08: Carbon Dioxide 29.8 mMol/L (20.0-31.0) 11/27/24 08:26 Anion Gap 7 (7-16) 11/27/24 08:26 BUN 9 mg/dL (9-23) 11/27/24 08:26 Creatinine 0.8 mg/dL (0.6-1.3) D 11/27/24 08:26 Estim Creat Clear Calc 105.1 mL/min (>60) 11/27/24 08:26 eGFR > 60 See Note (60-) 11/27/24 08:26 BUN/Creatinine Ratio 11 Ratio (12-20) L 11/27/24 08:26 Glucose 95 mg/dL (74-106) 11/27/24 08:26 Calculated Osmolality 285 (275-295) 11/27/24 08:26 Calcium 9.8 mg/dL (8.3-10.6) 11/27/24 08: Corrected Calcium 9.8 mg/dL (8.5-10.1) 11/27/24 08:26 Magnesium 2.2 mg/dL (1.6-2.6) 11/27/24 08:26 Total Bilirubin 0.4 mg/dL (0.3-1.2) 11/27/24 08:26 AST 20 U/L (0-34) 11/27/24 08:26 ALT 15 U/L (10-49) 11/27/24 08:26 Alkaline Phosphatase 59 U/L (46-116) 11/27/24 08:26 Total Protein 6.1 gm/dL (5.7-8.2) 11/27/24 08:26 Albumin 4.2 gm/dL (3.5-5.0) 11/27/24 08:26 Globulin 1.9 gm/dL (2.3-3.5) L 11/27/24 08:26 Albumin/Globulin Ratio 2.2 (1.2-2.2) 11/27/24 08:26 Lipase 31 U/L (12-53) 11/27/24 08:26 Ur Collection Type Clean Catch 11/27/24 10:02 Urine Color Colorless (Lt Yel-Yel) A 11/27/24 10:02 Urine Clarity Clear (Clear/Hazy) 11/27/24 10:02 Urine pH 7.5 (5.0-7.0) H 11/27/24 10:02 Ur Specific [place] 1.013 (1.001-1.035) 11/27/24 10:02 Urine Protein Negative (Neg - Trace) 11/27/24 10:02 Urine Glucose (UA) Negative (Negative) 11/27/24 10:02 Urine Ketones Negative (Negative) 11/27/24 10:02 Urine Blood Negative (Negative) 11/27/24 10:02 Urine Nitrite Negative (Negative) 11/27/24 10:02 Urine Bilirubin Negative (Negative) 11/27/24 10:02 Urine Urobilinogen (Auto) Negative mg/dL (0.0-1.0) 11/27/24 10:02 Ur Leukocyte Esterase Negative (Negative) 11/27/24 10:02 Urine RBC 2 /hpf (0-3) 11/27/24 10:02 Urine WBC < 1 /hpf (0-5) 11/27/24 10:02 Ur Squamous Epith Cells < 1 /hpf (0-5) 11/27/24 10:02 Urine Bacteria None (None) 11/27/24 10:02 Urine Opiates Screen Negative (Negative) 11/27/24 10:02 Urine Fentanyl Screen Negative (Negative) 11/27/24 10:02 Ur Barbiturates Screen Negative (Negative) 11/27/24 10:02 U Amphetamin/Meth Scrn Negative (Negative) 11/27/24 10:02 U Benzodiazepines Scrn Positive (Negative) A 11/27/24 10:02 U Cocaine Metab Screen Negative (Negative) 11/27/24 10:02 U Marijuana (THC) Screen Positive (Negative) A 11/27/24 10:02 Examination: CT brain head without contrast. 2-D sagittal coronal reconstructions Date and time of exam:November 27, 2024 1023 hours, comparison March 17, 2024 INDICATIONS: Seizures today CTDI: vol (mGy):47.3 DLP: (mGycm):944 Technique: Multiple CT axial sections of the brain have been obtained, 5 mm slice thickness. Contrast has not been administered. 2-D sagittal, coronal reconstructions have been obtained Low dose protocols were performed. One or more of the following dose reduction techniques were used; automated exposure control, adjustment of the mA and/or KV according to patient size, use of iterative reconstruction technique. 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 Discharge instructions specifically effects, indications for sooner follow up or return to the emergency department, and the expected course of current diagnosis. Patient condition: Stable Discharge Plan Plan Patient Disposition: HOME (Self Care) Patient condition on transfer: Stable Prescriptions/Referrals Prescriptions/Med Rec: No Action ProAir RespiClick 90 mcg/actuation aerosol powdr breath activated 2 inh inhalation Q6H PRN (Reason: shortness of breath or wheezing) Qty: 1 0RF albuterol sulfate 90 mcg/actuation HFA aerosol inhaler 2 puff inhalation Q6H PRN (Reason: shortness of breath or wheezing) Qty: 8.5 1RF prednisone 20 mg tablet 40 mg PO QDAY 5 Days Qty: 10 0RF Taper: Prednisone Taper 40 mg DAILY for 5 Days and 0 Hour ciprofloxacin HCl 500 mg tablet 500 mg PO BID Qty: 14 0RF buspirone 7.5 mg tablet 10 mg PO BID Aptiom 800 mg tablet 800 mg PO 1XD Patient Comments: TAKE 1 TABLET BY MOUTH EVERY DAY Valtoco 20 mg/2 spray (10mg/0.1mL x2) spray,non-aerosol 20 mg INTRANASAL PRN PRN (Reason: Seizure Activity) clobazam 10 mg tablet 10 mg PO BID Patient Comments: TAKE 1 TABLET BY MOUTH TWICE A DAY meclizine 25 mg tablet 25 mg PO BID PRN (Reason: dizziness) Qty: 20 0RF ibuprofen 600 mg tablet 600 mg PO Q6H Qty: 30 0RF Referrals: Jan Blanco [Primary Care Provider] - In 1 week Problem List Clinical Impression: Seizure, History of seizure Patient/Caregiver Discharge Instructions Education Materials: ED Seizure, Recurrent (Adult) Additional Instructions: Some general health principles that can help you are the NEW START principles: Nutrition (eat a plant-based diet, avoiding meats in general, avoiding highly processed foods) Exercise (Daily exercise/walks as tolerated) Water (Drink adequate fresh water to maintain hydration, concentrating on water rather than on soda, coffee, tea, juice, etc for hydration) [place] (Spend time - 15-20 minutes or so with skin exposed in the lye machine operator and late evening sun for Vitamin D health benefits) [place] (Avoid alcohol, illicit drugs, caffeinated beverages, smoking, etc) Air (Deep breathing exercises in the early mornings in fresh air) Rest (Adequate rest at night, going to bed a few hours before midnight and avoiding all screens/television/loud music in the time right before going to bed, also avoiding heavy meals just prior to going to bed) Trust in God (Spend time daily in Bible study and prayer - health benefits in contemplation of God's true character) Additional resources that can benefit: [email or web address], look under resources and seminars. Print Language: Sami Stand Alone Forms: Rosa Award Info., Work/School Release, Patient Portal Info Letter
[2024-11-27 10:05] VITALS: PULSE 65
[2024-11-27 10:14] LABS: Collection Type, Urine Clean Catch
[2024-11-27 10:17] LABS: Basophils # (Auto) 0.0 Thou/mm3 (0.0-0.2); Basophils % (Auto) 0 % (0-2.5); Eosinophils # (Auto) 0.0 Thou/mm3 (0.0-0.5); Eosinophils % (Auto) 0 % (0-10); Hematocrit 39.0 % (41.0-53.0); Hemoglobin 13.0 g/dL (13.5-16.0); Immature Granulocytes Auto 0.03 Thou/mm3 (0.00-0.00); Lymphocytes # (Auto) 1.1 Thou/mm3 (1.0-4.8); Lymphocytes % (Auto) 14 % (10-50); Mean Corpuscular HGB Conc 33.3 g/dl (31.0-37.0); Mean Corpuscular Hemoglobin 31.6 pg (25.0-35.0); Mean Corpuscular Volume 95 fL (80-100); Monocytes # (Auto) 0.4 Thou/mm3 (0.0-0.8); Monocytes % (Auto) 5 % (0-12); Neutrophils # (Auto) 6.8 Thou/mm3 (1.8-7.7); Neutrophils % (Auto) 81 % (37-80); Nucleated Red Blood Cell # 0.00 Thou/mm3 (0.00-0.00); Nucleated Red Blood Cell % 0 /100 WBC (0); Platelet Count 251 Thou/mm3 (140-440); RDW Standard Deviation 43.8 fL (35.1-43.9); Red Blood Count 4.11 Miln/mm3 (4.50-5.90); White Blood Count 8.4 Thou/mm3 (3.8-10.6)
[2024-11-27 10:19] LABS: Bilirubin,Urine Negative (Negative); Blood,Urine Negative (Negative); Clarity,Urine Clear (Clear/Hazy); Color,Urine Colorless (Lt Yel-Yel); Glucose, Urine Negative (Negative); Ketones,Urine Negative (Negative); Leukocyte Esterase,Urine Negative (Negative); Nitrite,Urine Negative (Negative); PH,Urine 7.5 (5.0-7.0); Protein,Urine Negative (Neg - Trace); RBC,Urine 2 /hpf (0-3); Specific Gravity,Urine 1.013 (1.001-1.035); Squamous Epithelial Cell,Urine < 1 /hpf (0-5); Urobilinogen,Urine Negative mg/dL (0.0-1.0); WBC,Urine < 1 /hpf (0-5)
[2024-11-27 10:35] LABS: Alanine Aminotransferase 15 U/L (10-49); Albumin, Serum 4.2 gm/dL (3.5-5.0); Albumin/Globulin Ratio 2.2 (1.2-2.2); Alkaline Phosphatase 59 U/L (46-116); Anion Gap 7 (7-16); Aspartate Amino Transferase 20 U/L (0-34); BUN/Creatinine Ratio 11 Ratio (12-20); Bilirubin,Total 0.4 mg/dL (0.3-1.2); Blood Urea Nitrogen 9 mg/dL (9-23); Calcium 9.8 mg/dL (8.3-10.6); Calcium (Corrected) 9.8 mg/dL (8.5-10.1); Carbon Dioxide 29.8 mMol/L (20.0-31.0); Chloride 107 mMol/L (98-107); Creatinine (Component) 0.8 mg/dL (0.6-1.3); Estimated Creatinine Clearance 105.1 mL/min (>60); Globulin 1.9 gm/dL (2.3-3.5); Glucose 95 mg/dL (74-106); Lipase 31 U/L (12-53); Magnesium 2.2 mg/dL (1.6-2.6); Osmolality,Calculated 285 (275-295); Potassium 4.3 mMol/L (3.4-5.1); Sodium 144 mMol/L (136-145); Total Protein 6.1 gm/dL (5.7-8.2); eGFR > 60 See Note
[2024-11-27 10:37] LABS: Amphetamine/Methamp Scrn,U Negative (Negative); Barbiturate Screen,Urine Negative (Negative); Benzodiazepines Screen,Urine Positive (Negative); Benzoylecgonine Screen, Ur Negative (Negative); Fentanyl Screen,Urine Negative (Negative); Opiate Screen,Urine Negative (Negative); THC Screen,Urine Positive (Negative)
[2024-11-27 12:24] VITALS: BP 114/69; PULSE 67; RESP 15; TEMP 36.9; O2SAT 98
[2024-11-27 12:39] VITALS: BP 114/69; PULSE 67; RESP 16; TEMP 36.9; O2SAT 98
[2024-12-02 07:24] LABS: Prolactin* 7.1 ng/mL (2.0-18.0)
== END 2024-11-27 12:40 | disposition home or self-care (01) ==
PROVIDERS: Emergency Provider Family Medicine; PCP Internal Medicine
DX: G40.909 Epilepsy, unspecified, not intractable, without status epilepticus (principal); F17.290 Nicotine dependence, other tobacco product, uncomplicated
CPT/HCPCS: 36415; 70450; 80053; 80307; 81001; 83690; 83735; 84146; 85025; 93005; 99283